=== PATIENT | male | born 1960 | race Caucasian/White ===

== ENCOUNTER 2017-05-14 21:44 | Observation (INO) ==
[2017-05-14 22:39] LABS: Basophils # 0.1 K/mcL (0.0-0.2); Basophils % 0.3 %; Eosinophils # 0.2 K/mcL (0.0-0.6); Eosinophils % 1.2 %; Hematocrit 45.2 % (37.5-50.1); Hemoglobin 14.9 g/dL (12.9-16.9); Immature Granulocytes % 0.4 % (0-4); Lymphocytes % 25.1 %; Mean Corpuscular Hemoglobin 29.3 pg (28.0-33.3); Mean Corpuscular Volume 88.8 fL (83.0-100.0); Mean Platelet Volume 8.8 fL (9.4-12.4); Neutrophils # 10.6 K/mcL (1.6-8.9); Platelet Count 306 K/mcL (140-400); Red Blood Count 5.09 M/mcL (4.19-5.50); Red Cell Distribution Width 13.1 % (11.5-14.5)
[2017-05-14 22:52] LABS: BUN/Creatinine Ratio 9 (6-26); Blood Urea Nitrogen 11 mg/dL (8-26); Calcium 9.8 mg/dL (8.6-10.8); Carbon Dioxide 29 mEq/L (19-29); Chloride 104 mEq/L (98-109); Glucose 134 mg/dL (70-99); Osmolality,Calculated 289 (280-300); Potassium 3.7 mEq/L (3.5-4.5); Sodium 139 mEq/L (136-145); eGFR For African Americans > 60 (> 60); eGFR For Non-African Americans > 60 (> 60)
--- NOTE | 2017-05-14 23:59 | Emergency Department Note ---
Disposition Clinical Impression: Chest pain Qualifiers: Chest pain type: unspecified Qualified Code(s): R07.9 - Chest pain, unspecified Disposition: Admitted As Inpatient Condition: Good Chest Pain HPI - General Chief Complaint: ED Chest Pain Stated Complaint: "CP/Chest Pressure" Time Seen by Provider: 05/14/17 22:58 Source: patient Limitations: no limitations Vital Signs Reviewed: Yes Nursing Notes Reviewed: Yes - History of Present Illness HPI Narrative: Patient presents for evaluation of chest pain that he describes as substernal pressure "something sitting on my chest". Patient states that he has had intermittent episodes of this in the past but they have all self resolved with rest and decreasing stress. Today the patient's episode has been constant and only relieved after being in the emergency department for approximately 20 minutes however this was prior to my initial evaluation of him. Patient is unsure whether exertion brings it on although when he is having the pain he does seem to have decreased exertional capacity. The patient started at bedside and states that these episodes are brought on with stress and he has been undergoing significant family stress. The patient denies cigarette smoking. Positive marijuana. She states that his sister is undergoing a heart surgery secondary to heart disease but has limited insight otherwise. Father had heart disease in his late 60s and early 70s. Patient will have basic chest pain workup and will likely need admission secondary to heart score of 5. Severity scale (1-10): 9 - Related Data Home Medications Medication Instructions Recorded Confirmed Geodon 160 mg PO HS 08/03/15 10/13/15 Trazodone HCl 200 mg PO HS 08/03/15 10/13/15 Previous Rx's Medication Instructions Recorded Ciprofloxacin [Cipro] 500 mg PO BID 72 Days 09/14/15 Allergies Allergy/AdvReac Type Severity Reaction Status Date / Time Bee Pollen Allergy Hives Verified 10/13/15 08:56 Review of Systems: CONSTITUTIONAL: No weight loss, fever, chills, weakness or fatigue. HEENT: Eyes: No visual changes. Ears, Nose, Throat: No hearing loss, difficulty talking or unable to swallow. SKIN: No rash or itching. CARDIOVASCULAR: Chest pain. RESPIRATORY: No shortness of breath, cough or sputum. GASTROINTESTINAL: No anorexia, nausea, vomiting or diarrhea. No abdominal pain or blood. GENITOURINARY: No burning on urination or hematuria. NEUROLOGICAL: No headache, dizziness, syncope, paralysis, ataxia, numbness or tingling in the extremities. No change in bowel or bladder control. MUSCULOSKELETAL: No muscle pain, back pain, joint pain or stiffness. Chest Pain PMH - Past Medical History Medical history: Reports: other Surgical history: Reports: no surgical history Psychiatric history: Reports: bipolar - Social History Smoking Status: Never smoker Alcohol use: Reports: none Drug use: Reports: marijuana Physical Exam General appearance: NAD, conversant Eyes: anicteric sclerae, moist conjunctivae; PERRL HENT: Atraumatic; oropharynx clear with moist mucous membranes and no mucosal ulcerations Neck: Normal inspection; Trachea midline; FROM, supple Lungs: CTA, with normal respiratory effort and no intercostal retractions CV: RRR, no MRGs Abdomen: Soft, non-tender; no rebound or gaurding Extremities: No peripheral edema or extremity lymphadenopathy Skin: Normal temperature; no rash, ulcers or lesions Psych: Appropriate mood and affect Neuro: alert and oriented to person, place and time - General Limitations: no limitations General appearance: alert, in no apparent distress Course - Consultations Consultation #1: Discussed with hospitalist, Dr. Aldana. Patient accepted for admission. Vital Signs Temperature 97.5 F L 05/14/17 21:47 Pulse Rate 100 05/14/17 21:47 Respiratory Rate 18 05/14/17 21:47 Blood Pressure 145/91 05/14/17 21:47 O2 Sat by Pulse Oximetry 94 05/14/17 21:47 Temperature 97.6 F 05/15/17 02:14 Pulse Rate 71 05/15/17 02:14 Respiratory Rate 16 05/15/17 02:14 Blood Pressure 156/91 05/15/17 02:14 O2 Sat by Pulse Oximetry 96 05/15/17 02:14 Oxygen Delivery Oxygen Delivery Room Air Chest Pain - Medical Records Medical records reviewed: Yes I reviewed the patient's medical records. - Lab Data Lab results reviewed: Yes I reviewed the patient's lab results. Result diagrams: 05/14/17 22:33 05/14/17 22:33 Lab Results 05/14/17 05/14/17 05/14/17 Range/Units 22:33 22:33 22:33 WBC 15.8 H (4.3-11.1) K/mcL RBC 5.09 (4.19-5.50) M/mcL Hgb 14.9 (12.9-16.9) g/dL Hct 45.2 (37.5-50.1) % MCV 88.8 (83.0-100.0) fL MCH 29.3 (28.0-33.3) pg MCHC 33.0 (31.6-35.5) g/dL RDW 13.1 (11.5-14.5) % Plt Count 306 (140-400) K/mcL MPV 8.8 L (9.4-12.4) fL Immature Gran % 0.4 (0-4) % Seg Neutrophils % 67.0 % Lymphocytes % 25.1 % Monocytes % 6.0 % Eosinophils % 1.2 % Basophils % 0.3 % Neutrophils # 10.6 H (1.6-8.9) K/mcL Lymphocytes # 4.0 (0.6-4.6) K/mcL Monocytes # 1.0 (0.0-1.3) K/mcL Eosinophils # 0.2 (0.0-0.6) K/mcL Basophils # 0.1 (0.0-0.2) K/mcL Sodium 139 (136-145) mEq/L Potassium 3.7 (3.5-4.5) mEq/L Chloride 104 (98-109) mEq/L Carbon Dioxide 29 (19-29) mEq/L BUN 11 (8-26) mg/dL Creatinine 1.20 (0.72-1.25) mg/dL Est GFR ( Amer) > 60 (> 60) Est GFR (Non-Af Amer) > 60 (> 60) BUN/Creatinine Ratio 9 (6-26) Glucose 134 H (70-99) mg/dL Calculated Osmolality 289 (280-300) Calcium 9.8 (8.6-10.8) mg/dL Troponin I 0.00 (0-0.03) ng/mL - Radiology Data Radiology results reviewed: Yes I reviewed the patient's radiology results. - EKG Data EKG attestation: Yes I reviewed and interpreted this EKG. EKG results narrative: Review patient has sinus rhythm with ventricular rate of 95. NE interval 156. QRS 89. QTC 399. The significant ST elevations or depressions. T-wave flattening in aVL when compared to previous EKG of 3/10/14. Heart Score - Score History: Moderately Suspicious EKG: Non Specific repolarisation Disturbance Age: 45-65 Risk Factors: Equal/Greater than 3 risk factor or history of atherosclerotic disease Troponin: Less than normal limit HEART Score Total: 5 Attestation Statement - Attestation Attestation: I, Cornelius Can MD, personally evaluated this patient and discussed their management with the resident physician. I reviewed the resident's note and agree with the documented findings, medical decision making, and plan of care. 56-year-old male presents to the emergency department with a complaint of severe pressure-like mid substernal chest pain which radiates to the left chest and towards the left shoulder. Patient states he has had similar pains intermittently in the past but they usually only last a few seconds and resolved but the episode tonight was much worse than usual and lasted for quite some time. He describes it as like an elephant sitting on his chest. It did not make him short of breath and nauseated. He also became diaphoretic. On examination patient is a well-developed well-nourished male in no acute distress. He is alert and oriented 3. There is no cyanosis or diaphoresis. Some mild tenderness over the left anterior chest wall. Breath sounds are clear and equal bilaterally. Heart regular rate and rhythm. Abdomen soft and nontender with normal bowel sounds. Labs reviewed. Chest x-ray negative. No acute changes on EKG. The hospitalist, Dr. Aldana, was consulted and accepted admission of the patient.
[2017-05-15] MEDS ORDERED: Ondansetron 4 MG/2 ML VIAL IVP PRN (04:45)
[2017-05-15] MEDS ORDERED: Naloxone 0.4 MG/ML INJ IVP PRN (04:45)
[2017-05-15] MEDS ORDERED: *HR* Morphine 2 MG/ML SYRINGE IVP PRN (04:45)
--- NOTE | 2017-05-15 04:55 | Internal Med History&Physical ---
Date of Encounter: 05/15/17 Time of Encounter: 04:50 Assessment and Plan (1) Chest pain Current visit: Yes Status: Acute 1. Will cycle troponins, EKG's, and order stress test along with ECHO. 2. Order urine drug screen given recent cocaine use about 3 weeks ago. He reports only one time use and none since. He admits to marijuana use daily, however. Qualifiers: Chest pain type: precordial pain Qualified Code(s): R07.2 - Precordial pain (2) Homelessness Current visit: Yes Status: Acute 1. Consult social work. (3) DVT prophylaxis Current visit: Yes Status: Acute 1. Heparin SQ. Internal Medicine - H&P: HPI Chief complaint: chest pain Admitted From: Emergency Dept Plans for Post Hospital Care: Home History of present illness: Mr. Phillips is a 56 year old male who presented to the ER tonight with complaints of chest pain, shortness of breath, and diaphoresis. Symptoms started earlier yesterday afternoon/evening, and his chest pain lasted more than an hour. Because of ongoing chest pain, he was prompted to come the ER by his daughter. Workup in the ER was negative, but because of his risk factors and presenting symptoms, he was admitted to the hospitalist service. Upon my assessment of the patient, he is chest pain-free currently. He does admit to having had chest pressure, shortness of breath, diaphoresis, and nausea. He felt as though someone was sitting on his chest. His symptoms have since resolved. He otherwise feels well. He denies any fevers, cough, congestion, body aches, chills, or night sweats. Cardiac risk factors include strong family history and former smoking status. He currently uses marijuana on a daily basis. He denies any other illicit drugs , but he did admit to a one-time use of cocaine roughly 3 weeks ago. I counseled patient at length on the need to abstain from all illicit drugs, especially cocaine given his cardiac complaints. He also is currently homeless and has been staying with friends. Past Med Surg Social Fam HX - Past Medical History Attestation: Yes The following information was validated with the patient. Source: patient, old records reviewed Medical history: no medical history Psychiatric history: bipolar - Past Surgical History Surgical History: orthopedic, other (C spine surgery), other (left ear surgery) - Social History Smoking Status: Never smoker Smokeless Tobacco Status: No Alcohol use: none Drug use: marijuana - Family History Mother Hx Family Cardiac Disorders: No Father Hx Family Cardiac Disorders: Yes Internal Medicine - H&P: Meds Geodon 160 mg PO HS 08/03/15 [History] Trazodone HCl 200 mg PO HS 08/03/15 [History] Ciprofloxacin [Cipro] 500 mg PO BID 72 Days 09/14/15 [Rx] Allergies Bee Pollen Allergy (Verified 10/13/15 08:56) Hives - Constitutional Constitutional: no chills, no fever(s), no night sweats - EENT Eyes: no blurry vision, no change in vision Ears: no ear pain, no tinnitus Nose, mouth and throat: no nasal congestion, no nasal discharge, no sinus pain, no sore throat - Cardiovascular Cardiovascular ROS IM: chest pain, diaphoresis, dyspnea, no edema, no lightheadedness, no syncope - Respiratory Respiratory: no cough, no hemoptysis, no wheezing, no chest congestion, no excessive phlegm production - Gastrointestinal Gastrointestinal: no abdominal pain, no diarrhea, no hematemesis, no hematochezia, no melena, no nausea, no vomiting - Genitourinary Genitourinary ROS male: no dysuria, no flank pain, no hematuria - Musculoskeletal Musculoskeletal ROS IM: no arthralgias, no back pain, no muscle cramps - Integumentary Integumentary IM: rash (from recent bed bug infestation), no jaundice - Neurological Neurological ROS: no dizziness, no focal weakness, no frequent falls, no headache(s) - Psychiatric Psychiatric: no anxiety, no depression, no paranoia - Endocrine Endocrine IM: no polydipsia, no polyuria - Hematologic/Lymphatic Hematologic/Lymphatic: no easy bruising, no lymphadenopathy - Allergic/Immunologic Allergic/Immunologic: no wheezing, no GI upset with certain foods - Constitutional Vitals: Temp Pulse Resp BP Pulse Ox 97.6 F 71 16 156/91 96 05/15/17 02:14 05/15/17 02:14 05/15/17 02:14 05/15/17 02:14 05/15/17 02:14 General appearance: Present: cooperative, disheveled, pleasant, no acute distress, answers questions appropriately - Head Head exam: Present: atraumatic, normal inspection - Eye Eye exam: Present: EOMI, normal appearance, PERRL. Absent: scleral icterus Pupils: Present: normal accommodation - ENT ENT exam: Present: mucous membranes moist, normal exam - Neck Neck exam general surgery: Present: full ROM, normal inspection, supple - Expanded Neck Exam Neck exam: Absent: carotid bruit - Respiratory Respiratory exam: Present: CTAB. Absent: chest wall tenderness, rales, rhonchi , wheezes - Cardiovascular Cardiovascular exam: Present: RRR, +S1, +S2. Absent: diastolic murmur, systolic murmur - GI/Abdominal GI/Abdominal exam: Present: normal bowel sounds, soft. Absent: hepatomegaly, mass, splenomegaly, tenderness - Extremities Exam Extremities exam: Present: warm, radial pulses palpable and symmetrical. Absent : calf tenderness, joint swelling, pedal edema - Back Exam Back exam: Present: normal inspection. Absent: CVA tenderness (L), CVA tenderness (R) - Neurological Exam Neurological exam: Present: alert, CN II-XII intact, oriented X3, no focal deficits - Psychiatric Psychiatric exam: Present: normal affect, normal mood - Skin Skin exam: Present: dry, rash (several small bug bite wounds (? bed bug bites)) , warm Internal Med - H&P Results - Labs CBC & Chem 7: 05/14/17 22:33 05/14/17 22:33 - EKG Data -: EKG Interpreted by Myself EKG shows normal: sinus rhythm - EKG Data Prior EKG available for review: no EKG comments: 05/15/17 05:23 NSR; no acute changes - Diagnostic Studies Chest x-ray Status: image reviewed by me (negative)
[2017-05-15 05:24] LABS: Amphetamine Screen,Urine Negative ng/mL (Cutoff=1000); Barbiturate Screen,Urine Negative ng/mL (Cutoff=200); Benzodiazepines Screen,Urine Negative ng/mL (Cutoff=200); Cannabinoid Screen,Urine Positive ng/mL (Cutoff = 50); Cocaine Screen,Urine Negative ng/mL (Cutoff= 300); Opiate Screen,Urine Negative ng/mL (Cutoff=300); Phencyclidine Screen,Urine Negative ng/mL (Cutoff=25)
[2017-05-15] MEDS ORDERED: Permethrin CRM 60 GM TUBE TP ONE (05:26)
[2017-05-15] MEDS ORDERED: *HR* Heparin 5,000 UNIT/ML VIAL SQ SCH (06:00)
[2017-05-15 07:25] LABS: Basophils % 0.3 %; Eosinophils # 0.2 K/mcL (0.0-0.6); Hematocrit 44.3 % (37.5-50.1); Hemoglobin 14.7 g/dL (12.9-16.9); Immature Granulocytes % 0.3 % (0-4); Lymphocytes % 25.2 %; Mean Corpuscular HGB Conc 33.2 g/dL (31.6-35.5); Mean Corpuscular Volume 87.4 fL (83.0-100.0); Mean Platelet Volume 9.2 fL (9.4-12.4); Monocytes # 0.9 K/mcL (0.0-1.3); Monocytes % 7.3 %; Neutrophils # 7.7 K/mcL (1.6-8.9); Platelet Count 314 K/mcL (140-400); Red Blood Count 5.07 M/mcL (4.19-5.50); Red Cell Distribution Width 13.2 % (11.5-14.5); Segmented Neutrophils % 64.9 %
[2017-05-15 07:29] LABS: INR 1.1; Prothrombin Time 11.4 Seconds (9.4-12.1)
[2017-05-15 07:31] LABS: Activated Partial Thrombo Time 32.3 Seconds (26.0-36.0)
[2017-05-15 07:35] LABS: Alanine Aminotransferase 20 Units/L (0-55); Albumin 3.7 g/dL (3.5-5.0); Albumin/Globulin Ratio 1.2 (1.1-2.2); Alkaline Phosphatase 82 Units/L (38-126); Aspartate Amino Transferase 16 Units/L (5-34); BUN/Creatinine Ratio 11 (6-26); Bilirubin,Total 0.5 mg/dL (0.2-1.2); Blood Urea Nitrogen 11 mg/dL (8-26); Calcium 9.5 mg/dL (8.6-10.8); Carbon Dioxide 27 mEq/L (19-29); Chloride 107 mEq/L (98-109); Globulin 3.1 g/dL (2.4-3.5); Glucose 107 mg/dL (70-99); Magnesium 1.9 mg/dL (1.6-2.6); Osmolality,Calculated 288 (280-300); Potassium 4.2 mEq/L (3.5-4.5); Sodium 139 mEq/L (136-145); Total Protein 6.8 g/dL (6.0-8.3); eGFR For African Americans > 60 (> 60); eGFR For Non-African Americans > 60 (> 60)
--- NOTE | 2017-05-15 08:48 | Event Note ---
<Bernard Javed - Last Filed: 05/15/17 08:42> Date of Encounter: 05/15/17 Time of Encounter: 08:15 Pt seen and examined at bedside. Patient reports Chest pain has resolved and he feels back to his baseline. He reports he has been experiencing cramps through out his body for a while now, previous physicians suggest dehydration and vitamin D deficiency as cause of these cramps. Patient's electrolytes including magnesium are all normal. Patient experienced what he described as a dennis horse in his chest while talking to him. Sxs resolved within a few seconds. On exam lungs CTAB, heart RRR, no m/g/r. MMM, PERRL. bowel sounds nl, abd SNT. Plan : Patient going for echo and stress test this morning. Troponin's have been negative and CXR showed no acute disease. Patient was counseled on cessation of smoking marijuana Follow Cardio's recs post stress/echo. <Ernesto Oliva - Last Filed: 05/15/17 17:14> Date of Encounter: 05/15/17 Stress test normal. Ok to discharge
[2017-05-15 12:29] VITALS: BP 158/107
--- NOTE | 2017-05-15 14:49 | Nuclear Medicine Stress Report ---
Exercise Nuclear Stress Name: Rusty Phillips Date of Study: 05/15/2017 Date: 1960 Ht: 70.0 in Medical Record#: [id number] Age: 56 Wt: 178.0 lb Gender: Male Order #: [id number] Location: [facility] Room: [facility] Supervising Provider: Ruiz Carpenter CNP Reading Physician: Angela Burns DO Ordering Physician: Sanford Cole MD Primary Care Physician: None Stress Technologist: Lilia Flores, REGIONAL ACCOUNT DIRECTOR, CCT, CPFT Electronic Health Records Specialist: Maxine Carballo Indications: Chest Pain Impression: Perfusion imaging was negative for ischemia or infarct. Exercise ECG was negative for ischemia. Hypertensive blood pressure response, peak blood pressure 230/92 mmHg. Gated EF = 70%. Stress Test Summary: Stress Test Type: Treadmill Protocol: Mustapha Baseline Information: Initial Heart Rate: 80 Blood Pressure: 156/86 Stress Information: Stress Time: 6 min 40 sec Test Terminated Due to (primary): Dyspnea Maximum Blood Pressure: 230/92 Maximum Heart Rate: 144 Percent Maximum Heart Rate Achieved: 88 Double Product: 00723 METS Reached: 7 Symptoms: Shortness of breath Nuclear Summary: SPECT myocardial perfusion imaging using Tc99m Sestamibi given intravenously was performed at rest and following cardiac stress testing. The resting images were obtained following initial dose of 11.7 mCi. Following stress an additional dose of 28.9 mCi was given at peak exercise or 30 seconds post regadenoson infusion. Medication Given: Time Medication Dose Units Route Findings: Stress Note * Resting ECG demonstrated normal sinus rhythm. * Exercise ECG is negative for ischemia. * No arrhythmias were noted during stress. Rare PVCs during recovery. * Patient had no chest pain during stress. * The exercise capacity was fair. Hemodynamic responses * The patient demonstrated a hypertensive blood pressure response. Study Quality * Study quality is good. Gated EF % * Gated EF = 70%. Left Ventricle * The left ventricle is not dilated. TID * No evidence of transient ischemic dilatation. Lung Uptake * There is no evidence of increase lung uptake. NORMALS * Normal wall motion. * Normal segmental perfusion in stress. * Normal Segmental Perfusion in rest. Updated by Angela Burns on 05/15/2017 2:42:36 PM electronically signed on 05/15/2017 2:43:27 PM with status of Final
--- NOTE | 2017-05-15 15:23 | Discharge Summary ---
<Nemesio Hawkins - Last Filed: 05/15/17 15:25> Date of Encounter: 05/15/17 Time of Encounter: 15:20 - Discharge Diagnosis (1) Chest pain Priority: Primary Status: Resolved Qualifiers: Chest pain type: precordial pain Qualified Code(s): R07.2 - Precordial pain - Discharge Medications Prescriptions: Lisinopril [Zestril] 10 mg PO DAILY #30 tablet Home Medications: Lisinopril [Zestril] 10 mg PO DAILY #30 tablet 05/15/17 [Rx] Trazodone HCl 300 - 400 mg PO HS 05/15/17 [History] Ziprasidone HCl [Geodon] 120 mg PO QPM 05/15/17 [History] Allergies/Adverse Reactions: Bee Pollen Allergy (Verified 10/13/15 08:56) Hives Procedures/tests Complete & Pending: Procedures Performed prior 72 hours Category Date Time Status NM suze perf SPECT multi [NM] Routine Exams 05/15/17 04:48 Taken ECG 12 lead ECG [ECG] AM 0600 Y 05/15/17 06:00 Ordered EV echocardiogram Routine Y 05/15/17 04:45 Ordered SP exercise nuclear stress Routine Y 05/15/17 07:20 Completed Date of admission: 05/15/17 00:53 Primary care physician: PCP NONE Consults: 05/15/17 02:52 Consult to Nutrition [CONS] Routine Comment: Pt states that he usually does not eat. Consulting Provider: NUTRITION Reason for Dietary Consult: Other Other:: Has no appitite 05/15/17 02:57 Consult to Chairperson Anesthesiology [CONS] Routine Reason for SW Consult: Homeless Discharging clinician: Nemesio Hawkins Anticipated date of discharge: 05/15/17 - Patient Status Disposition: Home, Self-Care Condition: Good Functional capacity at discharge: independent ambulation Overall status at discharge: patient is back to baseline - Discharge Instructions Instructions: Chest Pain (DC) Follow Up With: NONE,PCP [Primary Care Provider] - Additional Instructions: Please establish with a primary care physician. Please start lisinopril 10 mg daily. Please resume your home medications. Please return for any new or worsening symptoms. - Diet and Activity Activity: increase activity as tolerated Diet: advance to your usual diet Interval History: Patient seen and examined. He is chest pain-free at this time. He has no complaints. He is asking to go home. Hospital course: Mr. Phillips is a 56 year old male with no significant medical history presented with chest pain. Chest pain had resolved shortly before arrival to the emergency department. Patient been chest pain-free for his hospital stay. Stress test was obtained which was negative. Patient was found to be hypertensive during his hospital stay so we will start the patient on lisinopril 10 mg daily. Patient will be discharged home in stable condition. - Time Spent with Patient Total time spent providing and/or coordinating discharge services: Less than 30 minutes - Constitutional Vitals: Temp Pulse Resp BP Pulse Ox 98.2 F 71 18 158/107 94 05/15/17 12:28 05/15/17 12:28 05/15/17 12:28 05/15/17 12:28 05/15/17 12:28 General appearance: Present: cooperative, disheveled, pleasant, no acute distress, answers questions appropriately - Respiratory Respiratory exam: Present: CTAB. Absent: rales, rhonchi, wheezes - Cardiovascular Cardiovascular exam: Present: RRR. Absent: gallop, rubs, systolic murmur - GI/Abdominal GI/Abdominal exam: Present: normal bowel sounds, soft. Absent: distended, tenderness <Ernesto Oliva H - Last Filed: 05/15/17 17:15> Date of Encounter: 05/15/17 Procedures/tests Complete & Pending: Procedures Performed prior 72 hours Category Date Time Status NM suze perf SPECT multi [NM] Routine Exams 05/15/17 04:48 Taken ECG 12 lead ECG [ECG] AM 0600 Y 05/15/17 06:00 Ordered EV echocardiogram Routine Y 05/15/17 04:45 Completed SP exercise nuclear stress Routine Y 05/15/17 07:20 Completed Date of admission: 05/15/17 00:53 Primary care physician: PCP NONE Consults: 05/15/17 02:52 Consult to Nutrition [CONS] Routine Comment: Pt states that he usually does not eat. Consulting Provider: NUTRITION Reason for Dietary Consult: Other Other:: Has no appitite 05/15/17 02:57 Consult to Chairperson Anesthesiology [CONS] Routine Reason for SW Consult: Homeless Hospital course: Mr. Phillips is a 56 year old male - Time Spent with Patient Total time spent providing and/or coordinating discharge services: - Constitutional Vitals: Temp Pulse Resp BP Pulse Ox 98.2 F 71 18 158/107 94 05/15/17 12:28 05/15/17 12:28 05/15/17 12:28 05/15/17 12:28 05/15/17 12:28 - Attending Attestation Stress test normal. Ok to discharge Discharge on 10 mg of lisinopril due to untreated HTN I examined this patient and my medical decision-making was reviewed with the Resident Physician. I agree with the documented findings, disposition and treatment plan as described except to the extent set forth below.
--- NOTE | 2017-05-16 14:50 | Electrocardiograph Report ---
[address] [address] Test Date: 2017-05-14 Pat Name: Rusty Phillips Department: 102 Room: 2A Gender: M Certified Pharmacy Tech: [place] : 1960 Requested By: Cornelius Can Order Number: [id number] Reading MD: Mustapha Hurtado MD Measurements Intervals [place] Rate: 95 P: 56 MA: 156 QRS: 73 QRSD: 89 T: 46 QT: 346 QTc: 399 Interpretive Statements SINUS RHYTHM Electronically Signed On 05-16-2017 14:49:04 EDT by Mustapha Hurtado MD
== END 2017-05-15 15:45 | disposition home or self-care (01) ==
LOC: 2ANU 21:44 → EMEROO 21:44 → SUATTDRO 05-15 00:53 → 2ANU 05-15 01:57
PROVIDERS: ADMIT Pediatrics; ATTEND Internal Medicine

== ENCOUNTER 2017-06-19 09:33 | Observation (INO) ==
[2017-06-19] MEDS ORDERED: Famotidine 20 MG/2 ML VIAL IVP ONE (10:00)
[2017-06-19] MEDS ORDERED: Ondansetron 4 MG/2 ML VIAL IVP ONE (10:00)
[2017-06-19] MEDS ORDERED: 0.9 % Sodium Chloride 1,000 ML IVC ONE (10:00)
--- NOTE | 2017-06-19 10:08 | Emergency Department Note ---
Disposition Clinical Impression: Odynophagia, Nausea vomiting and diarrhea Disposition: Admitted As Inpatient Condition: Fair Referrals: Stefanie Jeronimo MD [Primary Care Provider] - Forms: ED Satisfaction Letter Time of Disposition: 10:57 Nausea/Vomiting/Diarrhea HPI - General Chief complaint: ED Nausea/Vomiting/Diarrhea Stated complaint: N/V/D Time Seen by Provider: 06/19/17 09:40 Source: patient Mode of arrival: ambulatory Limitations: no limitations Nursing Notes Reviewed: Yes Vital Signs Reviewed: Yes - History of Present Illness HPI Narrative: Patient complains of ongoing upper abdominal discomfort with swallowing. He states he is unable to tolerate large boluses of food or large swallows of liquids. He reports nausea, vomiting, diarrhea. No gross hematemesis. He is taking sucralfate and Zofran as prescribed from our emergency department. He is scheduled to have an upper endoscopy in 2 days. He does not feel dehydrated. Pt Subjective Complaint: nausea, vomiting, diarrhea, abdominal pain Onset (ago): week(s) Description of Diarrhea: green Associated Abdominal Pain: Yes If pain, Location of pain: epigastric Severity: severe Improves with: nothing Worsens with: eating Associated symptoms: Reports: denies other symptoms - Related Data Home Medications Medication Instructions Recorded Confirmed Trazodone HCl 300 - 400 mg PO HS 05/15/17 05/15/17 Ziprasidone HCl [Geodon] 120 mg PO QPM 05/15/17 05/15/17 Previous Rx's Medication Instructions Recorded Lisinopril [Zestril] 10 mg PO DAILY #30 tablet 05/15/17 Albuterol Sulfate [Albuterol 2 - 4 puff IH Q4HR PRN #1 06/07/17 Inhaler] hfa.aer.[email or web address] Azithromycin [Azithromycin 6-Tab 250 mg PO PER PKG DI #6 tab 06/07/17 Pack] predniSONE [Prednisone] 50 mg PO DAILY #4 tablet 06/07/17 Omeprazole [PriLOSEC] 40 mg PO DAILY #30 cap 06/08/17 Sucralfate [Carafate] 1 gm PO QIDAC #30 tablet 06/08/17 Omeprazole [PriLOSEC] 40 mg PO DAILY #30 cap 06/16/17 Ondansetron [Zofran] 8 mg PO Q8HR #12 tablet 06/16/17 Sucralfate [Carafate] 1 gm PO DA #30 tablet 06/16/17 Allergies Allergy/AdvReac Type Severity Reaction Status Date / Time Bee Pollen Allergy Hives Verified 06/16/17 12:15 All systems ED: reviewed and negative except as stated. Constitutional: Reports: as per HPI Eyes: Reports: as per HPI ENT ED: Reports: as per HPI Cardiovascular: Reports: as per HPI Respiratory: Reports: cough Gastrointestinal: Reports: abdominal pain, nausea, vomiting, diarrhea Genitourinary: Reports: as per HPI Musculoskeletal: Reports: as per HPI Integumentary: Reports: as per HPI Neurological: Reports: as per HPI Psychiatric: Reports: as per HPI Endocrine: Reports: as per HPI Hematological/Lymphatic: Reports: as per HPI Allergic/Immunologic: Reports: as per HPI Past Medical History - Past Medical History Source: patient Medical history: Reports: hypertension Surgical history: Reports: orthopedic, other (C spine surgery), other (left ear surgery) Psychiatric history: Reports: bipolar - Social History Smoking Status: Never smoker Smokeless Tobacco Status: No Alcohol use: Reports: none Drug use: Reports: marijuana Physical Exam - General Limitations: no limitations General appearance: alert, in no apparent distress - Head Head exam: atraumatic - Eye Eye exam: Present: normal appearance - ENT ENT exam: normal exam - Neck Neck exam: Present: normal inspection, full ROM - Chest Chest inspection: Present: normal inspection, symmetric chest wall rise - Respiratory Respiratory exam: Present: other (Productive cough) - Cardiovascular Cardiovascular exam: Present: regular rate, normal rhythm, normal heart sounds - Abdominal Exam Abdominal exam: Present: soft, tenderness (Mild tenderness in epigastrium), normal bowel sounds - Rectal Exam Rectal exam: Present: deferred - Extremities Exam Extremities exam: Present: normal inspection - Neurological Exam Neurological exam: Present: alert, oriented X3, CN II-XII intact - Psychiatric Psychiatric exam: Present: normal affect, normal mood - Skin Skin exam: Present: warm, dry, intact Course Course Narrative: Patient complains of ongoing epigastric pain with inability to tolerate swallowing food or liquids. He was recently seen in the emergency department for similar symptoms. I reviewed the transcribed report of his recent studies dated 06/16/[address] scan of his chest, abdomen. He also had a right upper quadrant ultrasound. The patient conveys concern that he is unable to continue tolerating his symptoms until he can have his upper endoscopy in 2 days. - Reevaluation(s) Reevaluation #1: Test results discussed with patient. He requests admission Vital Signs Temperature 98.1 F 06/19/17 09:37 Pulse Rate 75 06/19/17 09:37 Respiratory Rate 18 06/19/17 09:37 Blood Pressure 124/77 06/19/17 09:37 O2 Sat by Pulse Oximetry 96 06/19/17 09:37 Temperature 98.1 F 06/19/17 09:37 Pulse Rate 75 06/19/17 09:37 Respiratory Rate 18 06/19/17 09:37 Blood Pressure 124/77 06/19/17 09:37 O2 Sat by Pulse Oximetry 96 06/19/17 09:37 Oxygen Delivery Oxygen Delivery Room Air Nausea/Vomiting/Diarrhea - Lab Data Lab results reviewed: Yes I reviewed the patient's lab results. Result diagrams: 06/19/17 10:10 06/19/17 10:10 Lab Results 06/19/17 06/19/17 06/19/17 Range/Units 09:45 10:10 10:10 WBC 14.8 H (4.3-11.1) K/mcL RBC 4.54 (4.19-5.50) M/mcL Hgb 13.2 (12.9-16.9) g/dL Hct 39.9 (37.5-50.1) % MCV 87.9 (83.0-100.0) fL MCH 29.1 (28.0-33.3) pg MCHC 33.1 (31.6-35.5) g/dL RDW 13.3 (11.5-14.5) % Plt Count 312 (140-400) K/mcL MPV 9.4 (9.4-12.4) fL Immature Gran % 0.4 (0-4) % Seg Neutrophils % 70.1 % Lymphocytes % 21.1 % Monocytes % 6.4 % Eosinophils % 1.9 % Basophils % 0.1 % Neutrophils # 10.3 H (1.6-8.9) K/mcL Lymphocytes # 3.1 (0.6-4.6) K/mcL Monocytes # 0.9 (0.0-1.3) K/mcL Eosinophils # 0.3 (0.0-0.6) K/mcL Basophils # 0.0 (0.0-0.2) K/mcL Sodium 141 (136-145) mEq/L Potassium 3.8 (3.5-4.5) mEq/L Chloride 106 (98-109) mEq/L Carbon Dioxide 26 (19-29) mEq/L BUN 10 (8-26) mg/dL Creatinine 1.16 (0.72-1.25) mg/dL Est GFR ( Amer) > 60 (> 60) Est GFR (Non-Af Amer) > 60 (> 60) BUN/Creatinine Ratio 9 (6-26) Glucose 103 H (70-99) mg/dL Calculated Osmolality 291 (280-300) Calcium 9.0 (8.6-10.8) mg/dL Total Bilirubin 0.3 (0.2-1.2) mg/dL AST 12 (5-34) Units/L ALT 31 (0-55) Units/L Alkaline Phosphatase 78 (38-126) Units/L Troponin I (0-0.03) ng/mL Serum Total Protein 6.3 (6.0-8.3) g/dL Albumin 3.4 L (3.5-5.0) g/dL Globulin 2.9 (2.4-3.5) g/dL Albumin/Globulin Ratio 1.2 (1.1-2.2) Amylase 69 (25-125) Units/L Lipase 54 (8-78) Units/L Urine Color Dark Yellow (Yellow) Urine Clarity Clear (Clear) Urine pH 5.5 (5.0-8.0) pH Units Ur Specific [place] > 1.030 H (1.010-1.025) Urine Protein Trace (Neg-Trace) mg/dL Urine Glucose (UA) Normal (Normal) mg/dL Urine Ketones Trace H (Negative) mg/dL Urine Blood Negative (Negative) Urine Nitrite Negative (Negative) Urine Bilirubin Negative (Negative) Urine Urobilinogen Normal (Normal) mg/dL Ur Leukocyte Esterase Negative (Negative) Urine Microscopic RBC 0-3 (0-3) per hpf Urine Microscopic WBC 0-3 (0-3) per hpf Ur Squamous Epith Cells Moderate H (None-Few) per lpf Urine Bacteria None Seen (None-Few) per hpf Hyaline Casts None Seen (None-Few) per lpf 09/20/17 Range/Units 10:10 WBC (4.3-11.1) K/mcL RBC (4.19-5.50) M/mcL Hgb (12.9-16.9) g/dL Hct (37.5-50.1) % MCV (83.0-100.0) fL MCH (28.0-33.3) pg MCHC (31.6-35.5) g/dL RDW (11.5-14.5) % Plt Count (140-400) K/mcL MPV (9.4-12.4) fL Immature Gran % (0-4) % Seg Neutrophils % % Lymphocytes % % Monocytes % % Eosinophils % % Basophils % % Neutrophils # (1.6-8.9) K/mcL Lymphocytes # (0.6-4.6) K/mcL Monocytes # (0.0-1.3) K/mcL Eosinophils # (0.0-0.6) K/mcL Basophils # (0.0-0.2) K/mcL Sodium (136-145) mEq/L Potassium (3.5-4.5) mEq/L Chloride (98-109) mEq/L Carbon Dioxide (19-29) mEq/L BUN (8-26) mg/dL Creatinine (0.72-1.25) mg/dL Est GFR ( Amer) (> 60) Est GFR (Non-Af Amer) (> 60) BUN/Creatinine Ratio (6-26) Glucose (70-99) mg/dL Calculated Osmolality (280-300) Calcium (8.6-10.8) mg/dL Total Bilirubin (0.2-1.2) mg/dL AST (5-34) Units/L ALT (0-55) Units/L Alkaline Phosphatase (38-126) Units/L Troponin I 0.01 (0-0.03) ng/mL Serum Total Protein (6.0-8.3) g/dL Albumin (3.5-5.0) g/dL Globulin (2.4-3.5) g/dL Albumin/Globulin Ratio (1.1-2.2) Amylase (25-125) Units/L Lipase (8-78) Units/L Urine Color (Yellow) Urine Clarity (Clear) Urine pH (5.0-8.0) pH Units Ur Specific [place] (1.010-1.025) Urine Protein (Neg-Trace) mg/dL Urine Glucose (UA) (Normal) mg/dL Urine Ketones (Negative) mg/dL Urine Blood (Negative) Urine Nitrite (Negative) Urine Bilirubin (Negative) Urine Urobilinogen (Normal) mg/dL Ur Leukocyte Esterase (Negative) Urine Microscopic RBC (0-3) per hpf Urine Microscopic WBC (0-3) per hpf Ur Squamous Epith Cells (None-Few) per lpf Urine Bacteria (None-Few) per hpf Hyaline Casts (None-Few) per lpf - EKG Data EKG attestation: Yes I reviewed and interpreted this EKG. EKG results narrative: Sinus rhythm rate 68 WA 164 QRS 87 QT/QTC 388/405. Premature atrial complexes present.
[2017-06-19 10:20] LABS: Bilirubin,Urine Negative (Negative); Blood,Urine Negative (Negative); Clarity,Urine Clear (Clear); Color,Urine Dark Yellow (Yellow); Glucose,Urine (UA) Normal (Normal); Ketones,Urine Trace mg/dL (Negative); Leukocyte Esterase,Urine Negative (Negative); Nitrite,Urine Negative (Negative); PH,Urine 5.5 pH Units (5.0-8.0); Protein,Urine Trace mg/dL (Neg-Trace); Specific Gravity,Urine > 1.030 (1.010-1.025); Urobilinogen,Urine Normal (Normal)
[2017-06-19 10:24] LABS: Bacteria,Urine None Seen per hpf (None-Few); Hyaline Casts,Urine None Seen per lpf (None-Few); RBC,Urine 0-3 per hpf (0-3); Squamous Epithelial Cell,Urine Moderate per lpf (None-Few); WBC,Urine 0-3 per hpf (0-3)
[2017-06-19 10:29] LABS: Basophils % 0.1 %; Eosinophils # 0.3 K/mcL (0.0-0.6); Eosinophils % 1.9 %; Hematocrit 39.9 % (37.5-50.1); Hemoglobin 13.2 g/dL (12.9-16.9); Immature Granulocytes % 0.4 % (0-4); Lymphocytes # 3.1 K/mcL (0.6-4.6); Lymphocytes % 21.1 %; Mean Corpuscular HGB Conc 33.1 g/dL (31.6-35.5); Mean Corpuscular Hemoglobin 29.1 pg (28.0-33.3); Mean Corpuscular Volume 87.9 fL (83.0-100.0); Mean Platelet Volume 9.4 fL (9.4-12.4); Monocytes # 0.9 K/mcL (0.0-1.3); Monocytes % 6.4 %; Neutrophils # 10.3 K/mcL (1.6-8.9); Platelet Count 312 K/mcL (140-400); Red Blood Count 4.54 M/mcL (4.19-5.50); Red Cell Distribution Width 13.3 % (11.5-14.5); Segmented Neutrophils % 70.1 %
[2017-06-19 10:43] LABS: Alanine Aminotransferase 31 Units/L (0-55); Albumin 3.4 g/dL (3.5-5.0); Albumin/Globulin Ratio 1.2 (1.1-2.2); Alkaline Phosphatase 78 Units/L (38-126); Amylase 69 Units/L (25-125); Aspartate Amino Transferase 12 Units/L (5-34); BUN/Creatinine Ratio 9 (6-26); Bilirubin,Total 0.3 mg/dL (0.2-1.2); Blood Urea Nitrogen 10 mg/dL (8-26); Carbon Dioxide 26 mEq/L (19-29); Chloride 106 mEq/L (98-109); Globulin 2.9 g/dL (2.4-3.5); Glucose 103 mg/dL (70-99); Lipase 54 Units/L (8-78); Osmolality,Calculated 291 (280-300); Potassium 3.8 mEq/L (3.5-4.5); Sodium 141 mEq/L (136-145); Total Protein 6.3 g/dL (6.0-8.3); eGFR For African Americans > 60 (> 60); eGFR For Non-African Americans > 60 (> 60)
[2017-06-19] MEDS ORDERED: Acetaminophen 325 MG TABLET PO PRN (12:09)
[2017-06-19] MEDS ORDERED: Ondansetron 4 MG/2 ML VIAL IVP PRN (12:09)
[2017-06-19] MEDS ORDERED: Naloxone 0.4 MG/ML INJ IVP PRN (12:09)
[2017-06-19] MEDS ORDERED: tiZANidine 4 MG TABLET PO PRN (12:27)
--- NOTE | 2017-06-19 12:32 | Internal Med History&Physical ---
Date of Encounter: 06/19/17 Time of Encounter: 11:50 Assessment and Plan (1) Odynophagia Current visit: Yes Status: Acute Will place the pt into Med Surg for observation His Odynophagia / dysphagia with Epigastric discomfort seems more like to due to esophagitis and gastritis Since he does have difficulty to both liquid and solids he definitely would get benefit with EGD Talked to GI Dr. Hurtado , he will do EGD in AM NPO after mid night Clear liquid diet for now IV fluids IV and PO analgesics PPI BID + Carafate PO (2) Gastritis Current visit: Yes Status: Acute see above Qualifiers: Qualified Code(s): K29.70 - Gastritis, unspecified, without bleeding (3) HTN (hypertension) Current visit: Yes Status: Acute resumed home meds Qualifiers: Hypertension type: essential hypertension Qualified Code(s): I10 - Essential (primary) hypertension (4) DVT prophylaxis Current visit: No Status: Acute on [facility] - H&P: HPI Chief complaint: Difficulty to swallow Admitted From: Emergency Dept Plans for Post Hospital Care: Home History of present illness: Mr. Phillips is a 57 year old male with known PMH of Asthma, HTN, GERD who presented to ER today c/o worsening epigastric pain and difficulty to swallow for both sold and liquid food from last few days. He has been having this pain from last 2 months but from last one week they are progressively worsening and he is unable to hold anything down. he also c/o some nausea / dyspepsia and bilious secretions. He denied any CP / SOB. Past Med Surg Social Fam HX - Past Medical History Medical history: hypertension Psychiatric history: bipolar - Past Surgical History Surgical History: orthopedic, other (C spine surgery), other (left ear surgery) - Social History Smoking Status: Never smoker Smokeless Tobacco Status: No Alcohol use: none Drug use: marijuana - Family History Mother Hx Family Cardiac Disorders: No Father Hx Family Cardiac Disorders: Yes Internal Medicine - H&P: Meds Lisinopril [Zestril] 10 mg PO DAILY #30 tablet 05/15/17 [Rx] Trazodone HCl 300 - 400 mg PO HS 05/15/17 [History] Ziprasidone HCl [Geodon] 120 mg PO QPM 05/15/17 [History] Albuterol Sulfate [Albuterol Inhaler] 2 - 4 puff IH Q4HR PRN #1 hfa.aer.ad 06/07 [Rx] Omeprazole [PriLOSEC] 40 mg PO DAILY #30 cap 06/08/17 [Rx] Sucralfate [Carafate] 1 gm PO QIDAC #30 tablet 06/08/17 [Rx] Ondansetron [Zofran] 8 mg PO Q8HR #12 tablet 06/16/17 [Rx] Tizanidine HCl 4 mg PO Q12H PRN 06/19/17 [History] 3 Allergy/AdvReac Type Severity Reaction Status Date / Time Bee Pollen Allergy Hives Verified 06/16/17 12:15 All Systems PM: A 10-system review of systems was performed and is negative for pertinent findings except as documented above in the HPI. Review of systems: All the systems are reviewed everything is benign except the systems and symptoms I mentioned in the history of present illness - Constitutional Vitals: Temp Pulse Resp BP Pulse Ox 97.3 F L 67 16 145/85 97 06/19/17 12:19 06/19/17 12:19 06/19/17 12:19 06/19/17 12:19 06/19/17 12:19 General appearance: Present: A&O X 3, no acute distress, answers questions appropriately - Head Head exam: Present: atraumatic, normal inspection - Respiratory Respiratory exam: Present: CTAB. Absent: accessory muscle use, rales, rhonchi, wheezes - Cardiovascular Cardiovascular exam: Present: RRR, +S1, +S2. Absent: diastolic murmur, gallop, rubs, systolic murmur - GI/Abdominal GI/Abdominal exam: Present: normal bowel sounds, soft, tenderness (mild discomfort in epigastric region), no peritoneal signs. Absent: distended, guarding, rebound, rigid - Extremities Exam Extremities exam: Absent: calf tenderness, pedal edema, tenderness - Back Exam Back exam: Absent: CVA tenderness (L), CVA tenderness (R) - Neurological Exam Neurological exam: Present: alert, oriented X3 - Psychiatric Psychiatric exam: Present: normal affect, normal mood Internal Med - H&P Results - Labs CBC & Chem 7: 06/19/17 10:10 06/19/17 10:10
[2017-06-19] MEDS: *HR* HYDROcodone/Acet 5/325 mg TABLET PO PRN ×2 (14:00→19:53)
[2017-06-19] MEDS: 0.9 % Sodium Chloride 1,000 ML IVC SCH ×2 (14:00→21:57)
[2017-06-19] MEDS: Pantoprazole 40 MG VIAL IVP SCH (17:35)
[2017-06-19] MEDS: Sucralfate 1 GM TABLET PO SCH ×2 (17:35→21:57)
[2017-06-19] MEDS: Ziprasidone 20 MG CAPSULE PO SCH (17:35)
[2017-06-19] MEDS: *HR* Morphine 2 MG/ML SYRINGE IVP PRN ×2 (17:35→21:58)
[2017-06-19] MEDS: Mag Hydrox/Al Hydrox/Simeth 30 ML UDC PO PRN (19:58)
[2017-06-19] MEDS: traZODone 50 MG TABLET PO SCH (21:57)
[2017-06-20] MEDS: *HR* Morphine 2 MG/ML SYRINGE IVP PRN ×4 (03:15→16:22)
[2017-06-20 05:24] LABS: Basophils % 0.3 %; Eosinophils # 0.4 K/mcL (0.0-0.6); Eosinophils % 3.3 %; Hematocrit 36.8 % (37.5-50.1); Hemoglobin 11.9 g/dL (12.9-16.9); Immature Granulocytes % 0.3 % (0-4); Lymphocytes # 3.3 K/mcL (0.6-4.6); Lymphocytes % 28.5 %; Mean Corpuscular HGB Conc 32.3 g/dL (31.6-35.5); Mean Corpuscular Hemoglobin 28.9 pg (28.0-33.3); Mean Corpuscular Volume 89.3 fL (83.0-100.0); Mean Platelet Volume 9.4 fL (9.4-12.4); Monocytes # 0.9 K/mcL (0.0-1.3); Monocytes % 7.5 %; Platelet Count 250 K/mcL (140-400); Red Blood Count 4.12 M/mcL (4.19-5.50); Red Cell Distribution Width 13.4 % (11.5-14.5); Segmented Neutrophils % 60.1 %
[2017-06-20] MEDS: Pantoprazole 40 MG VIAL IVP SCH ×2 (05:48→18:22)
[2017-06-20 05:53] LABS: BUN/Creatinine Ratio 8 (6-26); Blood Urea Nitrogen 8 mg/dL (8-26); Calcium 8.5 mg/dL (8.6-10.8); Carbon Dioxide 24 mEq/L (19-29); Chloride 110 mEq/L (98-109); Glucose 98 mg/dL (70-99); Osmolality,Calculated 286 (280-300); Sodium 139 mEq/L (136-145); eGFR For African Americans > 60 (> 60); eGFR For Non-African Americans > 60 (> 60)
[2017-06-20] MEDS: 0.9 % Sodium Chloride 1,000 ML IVC SCH ×2 (05:53→16:24)
[2017-06-20] MEDS: Sucralfate 1 GM TABLET PO SCH ×4 (07:52→21:33)
--- NOTE | 2017-06-20 08:09 | Electrocardiograph Report ---
[place] [id number] Test Date: 2017-06-19 Pat Name: Rusty Phillips Department: 103 Room: 3B Gender: M [employer] Agent: JANNETH : 1960 Requested By: Mauro Schuster Order Number: [id number] Reading MD: Mustapha Hurtado MD Measurements Intervals [place] Rate: 68 P: 32 MO: 164 QRS: 66 QRSD: 87 T: 52 QT: 388 QTc: 405 Interpretive Statements SINUS RHYTHM WITH OCCASIONAL ECTOPIC PREMATURE COMPLEXES Electronically Signed On 06-20-2017 6:41:45 EDT by Mustapha Hurtado MD
--- NOTE | 2017-06-20 11:29 | Internal Med Progress Note ---
Date of Encounter: 06/20/17 Time of Encounter: 11:17 - Assessment and plan (1) Odynophagia Current Visit: Yes Status: Acute Assessment and plan: for 2-3 months prior to admission. Reports inability to swallow water without pain/difficulty. CTA showed esophageal wall thickening suggestive of esophagitis. GI consulted and planning EGD to rule out a mass or any other abnormalities NPO, IV fluids, IV PPI, Carafate. GI following (2) HTN (hypertension) Current Visit: Yes Status: Acute Assessment and plan: per hx. BP variable but acceptable. Continue home BP medications. Monitor BP and titrate PRN Qualifiers: Hypertension type: essential hypertension Qualified Code(s): I10 - Essential (primary) hypertension (3) DVT prophylaxis Current Visit: No Status: Acute Assessment and plan: SCDs - Time Spent With Patient less than 15 minutes - Subjective Interval history: Seen and examined at bedside. Patient is new to me, information obtained from chart review and patient report. Patient reports intermittent difficulty/ painful swallowing. Says he is unable to take a drink of water without and to spit it back out. No trouble breathing, no airway compromise. Denies chest pain. No abdominal pain, no nausea vomiting or diarrhea. - Constitutional Vitals: Temp Pulse Resp BP Pulse Ox 98.0 F 68 16 139/76 94 06/20/17 10:45 06/20/17 10:45 06/20/17 10:45 06/20/17 10:45 06/20/17 10:45 General appearance: Present: A&O X 3, no acute distress, answers questions appropriately - Head Head exam: Present: atraumatic, normocephalic - Eye Eye exam: Present: PERRL, conjuntiva pink, sclera anicteric Pupils: Present: PERRL - Neck Neck exam general surgery: Present: supple, trachea midline. Absent: lymphadenopathy - Respiratory Respiratory exam: Present: CTAB. Absent: accessory muscle use, rales, rhonchi, wheezes - Cardiovascular Cardiovascular exam: Present: RRR, +S1, +S2. Absent: diastolic murmur, gallop, rubs, systolic murmur - GI/Abdominal GI/Abdominal exam: Present: normal bowel sounds, soft, no peritoneal signs. Absent: distended, tenderness - Extremities Exam Extremities exam: Present: warm, radial pulses palpable and symmetrical. Absent : calf tenderness, cyanotic, pedal edema - Neurological Exam Neurological exam: Present: CN II-XII intact, oriented X3, no focal deficits. Absent: pronater drift, facial droop, speech deficit - Skin Skin exam: Present: dry, intact Internal Medicine: Result - Labs CBC & Chem 7: 06/20/17 04:59 06/20/17 04:59 Labs: Short CBC 06/20/17 Range/Units 04:59 WBC 11.7 H (4.3-11.1) K/mcL Hgb 11.9 L (12.9-16.9) g/dL Hct 36.8 L (37.5-50.1) % Plt Count 250 (140-400) K/mcL Neutrophils # 7.0 (1.6-8.9) K/mcL BMP 06/20/17 04:59 Sodium 139 Potassium 4.0 Chloride 110 H Carbon Dioxide 24 BUN 8 Creatinine 0.97 Glucose 98 Calcium 8.5 L - VTE Documentation of Mechanical Device: Intermittent pneumatic compression device Consult Discharge Plan - Plan Referrals: Stefanie Jeronimo MD [Primary Care Provider] -
[2017-06-20] MEDS: *HR* HYDROcodone/Acet 5/325 mg TABLET PO PRN (14:32)
--- NOTE | 2017-06-20 14:35 | Gastroenterology Consult Note ---
<Sudha Lima - Last Filed: 06/20/17 14:52> Date of Encounter: 06/20/17 Time of Encounter: 14:33 - Assessment and plan (1) Odynophagia Current Visit: Yes Status: Acute Assessment and plan: Odynophagia for past 2-3 months, and has intermittently been going on for a few years. CTA showed esophageal wall thickening. likely esophagitis, but need to do EGD to rule out mass or any other abnormalities. Plan NPO EGD later today - Time Spent With Patient Total time spent is greater than 50% in coordination of care (as documented) at patient's floor/unit and/or counseling patient: GI History of Present Illness - Data of Consult Consult date: 06/20/17 Requesting Physician: Mariposa Tripp CNP - Consult Narrative History of present illness: Mr. Phillips is a 57 year old male with PMHx of asthma, HTN, GERD. patient arrived to [facility] with chief complaint of epigastric pain and difficulty swallowing both swolids and liquids, and unable to keep anything down. he admits to nasuea, dyspepsia. He reports Odynophagia that has been going on intermittently for years, and then just recently started again a few months ago. He was vomiting a couple times a day for a few days before arrival to ED. he denies history of ulcers. he admits to nausea without vomiting today. admits to fevers of 103 prior to arrival to hospital. admits to chills, shortness of breath. he admits to dark tarry stools. he cannot recall if he has hematochezia, but admits to melena. Past Med Surg Social Fam HX - Past Medical History Medical history: hypertension, other Psychiatric history: bipolar - Past Surgical History Surgical History: orthopedic, other - Social History Smoking Status: Never smoker Smokeless Tobacco Status: No Alcohol use: none Drug use: marijuana - Family History Mother Hx Family Cardiac Disorders: No Father Hx Family Cardiac Disorders: Yes All systems PM: reviewed and no additional remarkable complaints except as stated - Constitutional Vitals: Temp Pulse Resp BP Pulse Ox 98.0 F 68 16 139/76 94 06/20/17 10:45 06/20/17 10:45 06/20/17 10:45 06/20/17 10:45 06/20/17 10:45 General appearance: Present: A&O X 3, pleasant, no acute distress - Head Head exam: Present: atraumatic, normocephalic - Neck Neck exam general surgery: Present: supple, trachea midline - Respiratory Respiratory exam: Present: CTAB - Cardiovascular Cardiovascular exam: Present: RRR, +S1, +S2 - GI/Abdominal GI/Abdominal exam: Present: guarding, normal bowel sounds, tenderness. Absent: distended Additional comments: right upper quadrant tenderness with guarding present. - Extremities Exam Extremities exam: Absent: cyanotic, pedal edema - Neurological Exam Neurological exam: Present: alert, oriented X3, no focal deficits - Skin Skin exam: Present: intact. Absent: cyanosis Results - Labs CBC & Chem 7: 06/20/17 04:59 06/20/17 04:59 Labs: Last Result Calcium 8.5 mg/dL (8.6-10.8) L 06/20/17 04:59 Troponin I 0.01 ng/mL (0-0.03) 06/19/17 10:10 Entire Visit Hgb 11.9 g/dL (12.9-16.9) L 06/20/17 04:59 Hct 36.8 % (37.5-50.1) L 06/20/17 04:59 Total Bilirubin 0.3 mg/dL (0.2-1.2) 06/19/17 10:10 AST 12 Units/L (5-34) 06/19/17 10:10 ALT 31 Units/L (0-55) 06/19/17 10:10 Amylase 69 Units/L (25-125) 06/19/17 10:10 Lipase 54 Units/L (8-78) 06/19/17 10:10 Consult Discharge Plan - Plan Referrals: Stefanie Jeronimo MD [Primary Care Provider] - <Gina Hurtado - Last Filed: 06/20/17 17:57> Date of Encounter: 06/20/17 Time of Encounter: 18:00 - Time Spent With Patient Total time spent is greater than 50% in coordination of care (as documented) at patient's floor/unit and/or counseling patient: GI History of Present Illness - Data of Consult Requesting Physician: Mariposa Tripp CNP - Consult Narrative History of present illness: Mr. Phillips is a 57 year old male - Constitutional Vitals: Temp Pulse Resp BP Pulse Ox 98.2 F 59 16 152/96 95 06/20/17 14:00 06/20/17 17:53 06/20/17 17:53 06/20/17 17:53 06/20/17 17:53 Results - Labs CBC & Chem 7: 06/20/17 04:59 06/20/17 04:59 Labs: Last Result Calcium 8.5 mg/dL (8.6-10.8) L 06/20/17 04:59 Troponin I 0.01 ng/mL (0-0.03) 06/19/17 10:10 Entire Visit Hgb 11.9 g/dL (12.9-16.9) L 06/20/17 04:59 Hct 36.8 % (37.5-50.1) L 06/20/17 04:59 Total Bilirubin 0.3 mg/dL (0.2-1.2) 06/19/17 10:10 AST 12 Units/L (5-34) 06/19/17 10:10 ALT 31 Units/L (0-55) 06/19/17 10:10 Amylase 69 Units/L (25-125) 06/19/17 10:10 Lipase 54 Units/L (8-78) 06/19/17 10:10 - Attending Attestation I examined this patient and my medical decision-making was reviewed with the Resident Physician. I agree with the documented findings, disposition and treatment plan as described except to the extent set forth below.
[2017-06-20] MEDS ORDERED: *HR* Midazolam HCl 5 MG/5 ML VIAL IVP ONE (17:33)
[2017-06-20] MEDS ORDERED: *HR* FentaNYL (PF) 100 MCG/2 ML VIAL ONE (17:34)
[2017-06-20] MEDS ORDERED: Simethicone 40 MG/0.6 ML MLS IR ONE (17:58)
[2017-06-20] MEDS ORDERED: Tetracaine/Benzocaine/Butamben 200MG/SPRAY (100SPY/BOT) MM ONE (17:58)
--- NOTE | 2017-06-20 17:59 | Pre-Sedation Evaluation ---
Pre-sedation evaluation - Pre-sedation checklist Date of procedure: 06/20/17 Procedure: EGD Recent Vitals: Last Vital Signs Temp 98.2 F 06/20/17 14:00 Pulse 59 06/20/17 17:53 Resp 16 06/20/17 17:53 BP 152/96 06/20/17 17:53 Pulse Ox 95 06/20/17 17:53 Previous reaction to sedatives/anesthetics: No Dietary Status: NPO after Midnight Dentition: full dentition ASA Classification *see protocol: CLASS II-Mild systemic disease Plan of Care: Pt appropriate candidate for procedure/moderate/conscious sedation , Risks/benefits of procedure/sedation discussed w/ patient/family
[2017-06-20] MEDS: *HR* FentaNYL (PF) 100 MCG/2 ML VIAL IVP PRN ×2 (18:00→18:04)
[2017-06-20] MEDS: *HR* Midazolam HCl 5 MG/5 ML VIAL IVP PRN ×2 (18:00→18:03)
[2017-06-20] MEDS: Ziprasidone 20 MG CAPSULE PO SCH (21:33)
[2017-06-20] MEDS: traZODone 50 MG TABLET PO SCH (21:34)
[2017-06-21] MEDS: *HR* Morphine 2 MG/ML SYRINGE IVP PRN (02:01)
[2017-06-21] MEDS: Mag Hydrox/Al Hydrox/Simeth 30 ML UDC PO PRN (02:01)
[2017-06-21] MEDS: 0.9 % Sodium Chloride 1,000 ML IVC SCH ×3 (02:12→12:41)
[2017-06-21 03:49] LABS: Hematocrit 35.9 % (37.5-50.1); Hemoglobin 11.7 g/dL (12.9-16.9); Mean Corpuscular HGB Conc 32.6 g/dL (31.6-35.5); Mean Corpuscular Hemoglobin 28.7 pg (28.0-33.3); Mean Corpuscular Volume 88.2 fL (83.0-100.0); Mean Platelet Volume 9.8 fL (9.4-12.4); Platelet Count 263 K/mcL (140-400); Red Blood Count 4.07 M/mcL (4.19-5.50)
[2017-06-21 04:10] LABS: Alanine Aminotransferase 20 Units/L (0-55); Albumin 2.8 g/dL (3.5-5.0); Albumin/Globulin Ratio 1.2 (1.1-2.2); Alkaline Phosphatase 63 Units/L (38-126); Aspartate Amino Transferase 9 Units/L (5-34); BUN/Creatinine Ratio 10 (6-26); Bilirubin,Total 0.4 mg/dL (0.2-1.2); Blood Urea Nitrogen 8 mg/dL (8-26); Calcium 8.4 mg/dL (8.6-10.8); Carbon Dioxide 22 mEq/L (19-29); Chloride 110 mEq/L (98-109); Globulin 2.4 g/dL (2.4-3.5); Glucose 89 mg/dL (70-99); Osmolality,Calculated 286 (280-300); Potassium 3.9 mEq/L (3.5-4.5); Sodium 139 mEq/L (136-145); Total Protein 5.2 g/dL (6.0-8.3); eGFR For African Americans > 60 (> 60); eGFR For Non-African Americans > 60 (> 60)
[2017-06-21] MEDS: Pantoprazole 40 MG VIAL IVP SCH (05:41)
[2017-06-21] MEDS: Sucralfate 1 GM TABLET PO SCH ×2 (08:07→12:40)
--- NOTE | 2017-06-21 11:13 | Internal Med Progress Note ---
Date of Encounter: 06/21/17 Time of Encounter: 11:07 - Assessment and plan (1) Odynophagia Current Visit: Yes Status: Acute Assessment and plan: for 2-3 months prior to admission. Reports inability to swallow water without pain/difficulty. CTA showed esophageal wall thickening suggestive of esophagitis. 06/21/2017 EGD with normal esohpagus and stomach; s/p esophagus dilation. Still with complaint of odynophagia and feels "Like food is stuck". Evaluated by speech therapy and no evidence of aspiration. Full liquid diet per GI. Cont IV PPI, Carafate. GI following. CXR pending (2) HTN (hypertension) Current Visit: Yes Status: Acute Assessment and plan: per hx. BP variable but acceptable. Continue home BP medications. Monitor BP and titrate PRN Qualifiers: Hypertension type: essential hypertension Qualified Code(s): I10 - Essential (primary) hypertension (3) DVT prophylaxis Current Visit: No Status: Acute Assessment and plan: SCDs - Time Spent With Patient less than 15 minutes - Subjective Interval history: Seen and examined at bedside. Patient is new to me, information obtained from chart review and patient report. Patient reports intermittent difficulty/ painful swallowing. Says he is unable to take a drink of water without and to spit it back out. No trouble breathing, no airway compromise. Denies chest pain. No abdominal pain, no nausea vomiting or diarrhea. - Constitutional Vitals: Temp Pulse Resp BP Pulse Ox 98.2 F 70 15 135/84 96 06/21/17 07:35 06/21/17 07:35 06/21/17 07:35 06/21/17 07:35 06/21/17 08:00 General appearance: Present: A&O X 3, no acute distress, answers questions appropriately Internal Medicine: Result - Labs CBC & Chem 7: 06/21/17 03:16 06/21/17 03:16 Labs: Short CBC 06/21/17 Range/Units 03:16 WBC 11.4 H (4.3-11.1) K/mcL Hgb 11.7 L (12.9-16.9) g/dL Hct 35.9 L (37.5-50.1) % Plt Count 263 (140-400) K/mcL BMP 06/21/17 03:16 Sodium 139 Potassium 3.9 Chloride 110 H Carbon Dioxide 22 BUN 8 Creatinine 0.80 Glucose 89 Calcium 8.4 L Liver Function 06/21/17 Range/Units 03:16 Total Bilirubin 0.4 (0.2-1.2) mg/dL AST 9 (5-34) Units/L ALT 20 (0-55) Units/L Alkaline Phosphatase 63 (38-126) Units/L Albumin 2.8 L (3.5-5.0) g/dL - VTE Documentation of Mechanical Device: Intermittent pneumatic compression device Consult Discharge Plan - Plan Referrals: Stefanie Jeronimo MD [Primary Care Provider] -
--- NOTE | 2017-06-21 15:52 | Discharge Summary ---
Date of Encounter: 06/21/17 Time of Encounter: 15:50 - Discharge Diagnosis (1) Odynophagia Priority: Primary Status: Acute Comments: for 2-3 months prior to admission. Reports inability to swallow water without pain/difficulty. CTA showed esophageal wall thickening suggestive of esophagitis. 06/21/2017 EGD with normal esohpagus and stomach; s/p esophagus dilation. Evaluated by speech therapy and no evidence of aspiration. Tolerating regular diet at time of discharge. Cont PPI, Carafate. Will need to follow-up with Dr. Hurtado (2) HTN (hypertension) Priority: Primary Status: Acute Comments: per hx. BP variable but acceptable. Continue home BP medications. Qualifiers: Hypertension type: essential hypertension Qualified Code(s): I10 - Essential (primary) hypertension - Discharge Medications Home Medications: Lisinopril [Zestril] 10 mg PO DAILY #30 tablet 05/15/17 [Rx] Trazodone HCl 300 - 400 mg PO HS 05/15/17 [History] Ziprasidone HCl [Geodon] 120 mg PO QPM 05/15/17 [History] Albuterol Sulfate [Albuterol Inhaler] 2 - 4 puff IH Q4HR PRN #1 hfa.aer.ad 06/07 [Rx] Omeprazole [PriLOSEC] 40 mg PO DAILY #30 cap 06/08/17 [Rx] Sucralfate [Carafate] 1 gm PO QIDAC #30 tablet 06/08/17 [Rx] Ondansetron [Zofran] 8 mg PO Q8HR #12 tablet 06/16/17 [Rx] Tizanidine HCl 4 mg PO Q12H PRN 06/19/17 [History] Allergies/Adverse Reactions: 3 Allergy/AdvReac Type Severity Reaction Status Date / Time Bee Pollen Allergy Hives Verified 06/16/17 12:15 Date of admission: 06/19/17 11:26 Primary care physician: Stefanie Jeronimo Consults: 06/19/17 12:26 Consult to Gastroenterology [CONS] Routine Consulting Provider: Gastroenterology Dolores Reason for Consult: Acute dysphagia Call Completed: Yes 06/21/17 08:45 Consult to Speech Therapy [CONS] Routine Comment: Evaluate, develop and implement POC Reason for Consult: painful swallowingl, feels like food is stuck. EGD normal , s/p dilation Call Completed: Yes Discharging clinician: Mariposa Tripp Anticipated date of discharge: 06/21/17 - Patient Status Disposition: Home, Self-Care Condition: Good Functional capacity at discharge: independent ambulation Overall status at discharge: patient is back to baseline - Discharge Instructions Follow Up With: Stefanie Jeronimo MD [Primary Care Provider] - Gina Hurtado MD [Partnered Physician] - - Diet and Activity Activity: increase activity as tolerated Diet: advance to your usual diet Hospital course: See assessment and plan for hospital course - Time Spent with Patient Total time spent providing and/or coordinating discharge services: Less than 30 minutes (22 minutes) - Constitutional Vitals: Temp Pulse Resp BP Pulse Ox 98.8 F 62 16 135/81 96 06/21/17 11:40 06/21/17 11:40 06/21/17 11:40 06/21/17 11:40 06/21/17 11:40 General appearance: Present: A&O X 3, no acute distress, answers questions appropriately - Head Head exam: Present: atraumatic, normocephalic - Eye Eye exam: Present: PERRL, conjuntiva pink, sclera anicteric Pupils: Present: PERRL - Neck Neck exam general surgery: Present: supple, trachea midline. Absent: lymphadenopathy - Respiratory Respiratory exam: Present: CTAB. Absent: accessory muscle use, rales, rhonchi, wheezes - Cardiovascular Cardiovascular exam: Present: RRR, +S1, +S2. Absent: diastolic murmur, gallop, rubs, systolic murmur - GI/Abdominal GI/Abdominal exam: Present: normal bowel sounds, soft, no peritoneal signs. Absent: distended, tenderness - Extremities Exam Extremities exam: Present: warm, radial pulses palpable and symmetrical. Absent : calf tenderness, cyanotic, pedal edema - Neurological Exam Neurological exam: Present: CN II-XII intact, oriented X3, no focal deficits. Absent: pronater drift, facial droop, speech deficit - Skin Skin exam: Present: dry, intact - VTE Documentation of Mechanical Device: Intermittent pneumatic compression device
[2017-06-21 15:56] VITALS: BP 156/83
== END 2017-06-21 16:47 | disposition home or self-care (01) ==
LOC: EMEROO 09:33 → 3BNU 09:33
PROVIDERS: ADMIT Family Medicine; ATTEND Registered Nurse
PROC: ENDOEDS (2017-06-20 16:00)

== ENCOUNTER 2018-10-30 23:51 | Observation (INO) ==
[2018-10-31] MEDS ORDERED: Aspirin 81 MG TAB.CHEW PO ONE (00:05)
[2018-10-31 00:36] LABS: Basophils # 0.1 K/mcL (0.0-0.2); Basophils % 0.4 %; Eosinophils # 0.2 K/mcL (0.0-0.6); Eosinophils % 1.4 %; Hematocrit 42.9 % (37.5-50.1); Hemoglobin 14.6 g/dL (12.9-16.9); Immature Granulocytes % 0.3 % (0-4); Lymphocytes # 3.9 K/mcL (0.6-4.6); Lymphocytes % 27.4 %; Mean Corpuscular Hemoglobin 29.6 pg (28.0-33.3); Mean Platelet Volume 9.3 fL (9.4-12.4); Monocytes # 1.1 K/mcL (0.0-1.3); Monocytes % 7.5 %; Neutrophils # 8.9 K/mcL (1.6-8.9); Platelet Count 318 K/mcL (140-400); Red Blood Count 4.93 M/mcL (4.19-5.50); Red Cell Distribution Width 12.9 % (11.5-14.5)
[2018-10-31] MEDS: Nitroglycerin 0.4 MG TAB.SUBL SL ONE ×3 (00:40→00:51)
[2018-10-31 00:47] LABS: BUN/Creatinine Ratio 10 (6-26); Blood Urea Nitrogen 11 mg/dL (6-20); Calcium 9.7 mg/dL (8.6-10.3); Carbon Dioxide 21 mEq/L (23-29); Chloride 107 mEq/L (98-107); Glucose 121 mg/dL (70-105); Osmolality,Calculated 285 (280-300); Potassium 3.7 mEq/L (3.5-5.1); Sodium 137 mEq/L (136-145); Troponin I < 0.03 ng/mL (< 0.04); eGFR For Non-African Americans > 60 (> 60)
--- NOTE | 2018-10-31 01:16 | Emergency Department Note ---
Disposition Clinical Impression: Chest pain Qualifiers: Chest pain type: unspecified Qualified Code(s): R07.9 - Chest pain, unspecified Disposition: Admitted As Inpatient Condition: Fair Referrals: Pee Bates Jr, EMPLOYMENT ADVISOR [Primary Care Provider] - Forms: ED Satisfaction Letter Time of Disposition: 01:20 General Adult HPI - General Chief complaint: ED Chest Pain Stated complaint: CP Time Seen by Provider: 10/31/18 00:01 Source: patient Mode of arrival: ambulatory Limitations: no limitations Vital Signs Reviewed: Yes - History of Present Illness HPI Narrative: Patient is a 58-year-old male with past medical history of diabetes, cholesterol and hypertension presents to the emergency department for evaluation of chest pain that started at noon today. Chest pain was sudden in onset while he was sitting down drinking coffee describes it as a left-sided aching pain that was a 10/10 associated with dyspnea, nausea and radiation into the right arm. He did not notice any exacerbating or alleviating factors. States it continued throughout the day however it has lightened up and is currently a 5/10. Denies history of heart attack in the past. States he was working out in the cold throughout the day. Pain Scale: 0 - Related Data Home Medications Medication Instructions Recorded Confirmed Trazodone HCl 300 - 400 mg PO HS 05/15/17 06/19/17 Ziprasidone HCl [Geodon] 120 mg PO QPM 05/15/17 06/19/17 Tizanidine HCl 4 mg PO Q12H PRN 06/19/17 06/19/17 Previous Rx's Medication Instructions Recorded Lisinopril [Zestril] 10 mg PO DAILY #30 tablet 05/15/17 Albuterol Sulfate [Albuterol 2 - 4 puff IH Q4HR PRN #1 06/07/17 Inhaler] hfa.aer.ad Omeprazole [PriLOSEC] 40 mg PO DAILY #30 cap 06/08/17 Sucralfate [Carafate] 1 gm PO QIDAC #30 tablet 06/08/17 Ondansetron [Zofran] 8 mg PO Q8HR #12 tablet 06/16/17 Doxycycline 100 mg PO BID #20 capsule 03/16/18 Allergies Allergy/AdvReac Type Severity Reaction Status Date / Time Bee Pollen Allergy Hives Verified 06/16/17 12:15 All systems ED: reviewed and negative except as stated. Review of Systems: As Per HPI Constitutional: Denies: fever, chills Cardiovascular: Reports: chest pain. Denies: palpitations, dyspnea on exertion, edema, syncope, paroxysmal nocturnal dyspnea Respiratory: Reports: dyspnea. Denies: cough Gastrointestinal: Reports: nausea. Denies: abdominal pain, vomiting Genitourinary: Denies: urgency, dysuria Musculoskeletal: Denies: back pain Past Medical History - Past Medical History Attestation: Yes The following information was validated with the patient. Medical history: Reports: hypertension, other Surgical history: Reports: orthopedic, other Psychiatric history: Reports: bipolar - Social History Smoking Status: Never smoker Smokeless Tobacco Status: No Alcohol use: Reports: none Drug use: Reports: marijuana Physical Exam CONSTITUTIONAL: Well-appearing; well-nourished; A&O X 3, in no apparent distress HEAD: Normocephalic; atraumatic EYES: PERRL, no scleral icterus NOSE: The nose is normal in appearance without rhinorrhea NECK: No JVD or distended neck veins RESP: Normal chest excursion with respiration; breath sounds clear and equal bilaterally; no wheezes, rhonchi, or rales CARD: Regular rhythm, without murmurs, rub or gallop ABD: Non-distended; non-tender, soft, without rigidity, rebound or guarding,no pulsatile mass CHEST: No pain with palpation SKIN: Normal for age and race; warm and dry without diaphoresis ; no apparent lesions EXTREMITIES: Pulses are 2 plus and equal times 4 extremities, no peripheral edema or calf muscle pain - General Limitations: no limitations General appearance: alert Course Course Narrative: Patient underwent evaluation for his chest pain. His lab work was unremarkable. Chest x-ray is negative. EKG was nonischemic. Troponin was negative. Patient's chest plain completely resolved after 3 doses of nitroglycerin. He does have a moderate HEART score. He will need to come in for admission for further workup and evaluation I discussed the patient's case with Dr. Lola Goddard he agrees to accept. Vital Signs Temperature 98.6 F 10/31/18 00:14 Pulse Rate 92 10/31/18 00:14 Respiratory Rate 15 10/31/18 00:14 Blood Pressure 143/94 10/31/18 00:14 O2 Sat by Pulse Oximetry 97 10/31/18 00:14 Temperature 98.6 F 10/31/18 00:14 Pulse Rate 114 10/31/18 00:55 Respiratory Rate 15 10/31/18 00:55 Blood Pressure 118/88 10/31/18 00:55 O2 Sat by Pulse Oximetry 95 10/31/18 00:55 Oxygen Delivery Oxygen Delivery Room Air Medical Decision Making - Medical Records Medical records reviewed: Yes I reviewed the patient's medical records. - Lab Data Lab results reviewed: Yes I reviewed the patient's lab results. Result diagrams: 10/31/18 00:13 10/31/18 00:13 Lab Results 10/31/18 10/31/18 Range/Units 00:13 00:13 WBC 14.1 H (4.3-11.1) K/mcL RBC 4.93 (4.19-5.50) M/mcL Hgb 14.6 (12.9-16.9) g/dL Hct 42.9 (37.5-50.1) % MCV 87.0 (83.0-100.0) fL MCH 29.6 (28.0-33.3) pg MCHC 34.0 (31.6-35.5) g/dL RDW 12.9 (11.5-14.5) % Plt Count 318 (140-400) K/mcL MPV 9.3 L (9.4-12.4) fL Immature Gran % 0.3 (0-4) % Seg Neutrophils % 63.0 % Lymphocytes % 27.4 % Monocytes % 7.5 % Eosinophils % 1.4 % Basophils % 0.4 % Neutrophils # 8.9 (1.6-8.9) K/mcL Lymphocytes # 3.9 (0.6-4.6) K/mcL Monocytes # 1.1 (0.0-1.3) K/mcL Eosinophils # 0.2 (0.0-0.6) K/mcL Basophils # 0.1 (0.0-0.2) K/mcL Sodium 137 (136-145) mEq/L Potassium 3.7 (3.5-5.1) mEq/L Chloride 107 (98-107) mEq/L Carbon Dioxide 21 L (23-29) mEq/L BUN 11 (6-20) mg/dL Creatinine 1.06 (0.70-1.30) mg/dL Est GFR ( Amer) > 60 (> 60) Est GFR (Non-Af Amer) > 60 (> 60) BUN/Creatinine Ratio 10 (6-26) Glucose 121 H (70-105) mg/dL Calculated Osmolality 285 (280-300) Calcium 9.7 (8.6-10.3) mg/dL Troponin I < 0.03 (< 0.04) ng/mL - Radiology Data Radiology results reviewed: Yes I reviewed the patient's radiology results. Chest X-Ray 10/31/18 00:05 IMPRESSION: No acute process. D/ / Maria Burgess MD / Maria Burgess MD Interpreting Provider: Maria Burgess MD - EKG Data EKG #1 EKG attestation: Yes I reviewed and interpreted this EKG. EKG results narrative: EKG done at 23:57 shows sinus rhythm at a rate of 98 bpm. Normal axis. Intervals within normal limits. No signs of ST elevation, ST depression or Q waves present.
--- NOTE | 2018-10-31 01:26 | Emergency Department Note ---
Disposition Clinical Impression: Chest pain Qualifiers: Chest pain type: unspecified Qualified Code(s): R07.9 - Chest pain, unspecified Disposition: Admitted As Inpatient Condition: Fair Referrals: Pee Bates Jr, CUSTOMER SOLUTIONS COORDINATOR [Primary Care Provider] - Forms: ED Satisfaction Letter General Adult HPI - General Chief complaint: ED Chest Pain Stated complaint: CP Time Seen by Provider: 10/31/18 00:01 Source: patient Limitations: no limitations Nursing Notes Reviewed: Yes Vital Signs Reviewed: Yes - History of Present Illness Pain Scale: 0 - Related Data Home Medications Medication Instructions Recorded Confirmed Trazodone HCl 300 - 400 mg PO HS 05/15/17 06/19/17 Ziprasidone HCl [Geodon] 120 mg PO QPM 05/15/17 06/19/17 Tizanidine HCl 4 mg PO Q12H PRN 06/19/17 06/19/17 Previous Rx's Medication Instructions Recorded Lisinopril [Zestril] 10 mg PO DAILY #30 tablet 05/15/17 Albuterol Sulfate [Albuterol 2 - 4 puff IH Q4HR PRN #1 06/07/17 Inhaler] hfa.aer.ad Omeprazole [PriLOSEC] 40 mg PO DAILY #30 cap 06/08/17 Sucralfate [Carafate] 1 gm PO QIDAC #30 tablet 06/08/17 Ondansetron [Zofran] 8 mg PO Q8HR #12 tablet 06/16/17 Doxycycline 100 mg PO BID #20 capsule 03/16/18 Allergies Allergy/AdvReac Type Severity Reaction Status Date / Time Bee Pollen Allergy Hives Verified 06/16/17 12:15 Past Medical History - Past Medical History Medical history: Reports: hypertension, other Surgical history: Reports: orthopedic, other Psychiatric history: Reports: bipolar - Social History Smoking Status: Never smoker Smokeless Tobacco Status: No Alcohol use: Reports: none Drug use: Reports: marijuana Physical Exam - General Limitations: no limitations General appearance: alert Course Vital Signs Temperature 98.6 F 10/31/18 00:14 Pulse Rate 92 10/31/18 00:14 Respiratory Rate 15 10/31/18 00:14 Blood Pressure 143/94 10/31/18 00:14 O2 Sat by Pulse Oximetry 97 10/31/18 00:14 Temperature 98.6 F 10/31/18 00:14 Pulse Rate 114 10/31/18 00:55 Respiratory Rate 15 10/31/18 00:55 Blood Pressure 118/88 10/31/18 00:55 O2 Sat by Pulse Oximetry 95 10/31/18 00:55 Oxygen Delivery Oxygen Delivery Room Air Medical Decision Making - Medical Records Medical records reviewed: Yes I reviewed the patient's medical records. - Lab Data Lab results reviewed: Yes I reviewed the patient's lab results. Result diagrams: 10/31/18 00:13 10/31/18 00:13 Lab Results 10/31/18 10/31/18 Range/Units 00:13 00:13 WBC 14.1 H (4.3-11.1) K/mcL RBC 4.93 (4.19-5.50) M/mcL Hgb 14.6 (12.9-16.9) g/dL Hct 42.9 (37.5-50.1) % MCV 87.0 (83.0-100.0) fL MCH 29.6 (28.0-33.3) pg MCHC 34.0 (31.6-35.5) g/dL RDW 12.9 (11.5-14.5) % Plt Count 318 (140-400) K/mcL MPV 9.3 L (9.4-12.4) fL Immature Gran % 0.3 (0-4) % Seg Neutrophils % 63.0 % Lymphocytes % 27.4 % Monocytes % 7.5 % Eosinophils % 1.4 % Basophils % 0.4 % Neutrophils # 8.9 (1.6-8.9) K/mcL Lymphocytes # 3.9 (0.6-4.6) K/mcL Monocytes # 1.1 (0.0-1.3) K/mcL Eosinophils # 0.2 (0.0-0.6) K/mcL Basophils # 0.1 (0.0-0.2) K/mcL Sodium 137 (136-145) mEq/L Potassium 3.7 (3.5-5.1) mEq/L Chloride 107 (98-107) mEq/L Carbon Dioxide 21 L (23-29) mEq/L BUN 11 (6-20) mg/dL Creatinine 1.06 (0.70-1.30) mg/dL Est GFR ( Amer) > 60 (> 60) Est GFR (Non-Af Amer) > 60 (> 60) BUN/Creatinine Ratio 10 (6-26) Glucose 121 H (70-105) mg/dL Calculated Osmolality 285 (280-300) Calcium 9.7 (8.6-10.3) mg/dL Troponin I < 0.03 (< 0.04) ng/mL - Radiology Data Radiology results reviewed: Yes I reviewed the patient's radiology results. Chest X-Ray 10/31/18 00:05 IMPRESSION: No acute process. D/ / Maria Burgess MD / Maria Burgess MD Interpreting Provider: Maria Burgess MD - EKG Data EKG #1 EKG attestation: Yes I reviewed and interpreted this EKG. EKG results narrative: EKG shows normal sinus rhythm with ventricular rate of 98. No ST segment elevation or depression. No ectopy or arrhythmia. Normal EKG. No significant change from prior EKG dated 06/19/17. Attestation Statement - Attestation Attestation: I, Cornelius Can MD, personally evaluated this patient and discussed their management with the resident physician. I reviewed the resident's note and agree with the documented findings, medical decision making, and plan of care. 58-year-old male presents to the emergency department with a complaint of some left sided chest pain which started about noon today. Onset was at rest. He rated the pain a 10 out of 10 at the worst. No radiation of the pain but he states at one point his right arm felt numb and tingly. He did have some nausea but no vomiting. Some mild diaphoresis. Some intermittent shortness of breath. He denies any prior known cardiac history. He does have a history of hypertension and hyperlipidemia. On examination patient is a well-developed well-nourished well-appearing male in no acute distress. He is alert and oriented 3. There is no cyanosis or diaphoresis. Breath sounds are clear and equal bilaterally. Heart regular rate and rhythm. No murmur or ectopy. Abdomen soft and nontender with normal bowel sounds. No pedal edema. Labs reviewed and unremarkable. Chest x-ray negative. EKG normal. Patient received aspirin and nitroglycerin. He did have complete relief of the chest pain with nitroglycerin. The hospitalist, Dr. Meek, was consulted and accepted admission of the laura barron.
[2018-10-31] MEDS ORDERED: Naloxone 0.4 MG/ML INJ IVP PRN (01:49)
[2018-10-31] MEDS ORDERED: Nitroglycerin 0.4 MG TAB.SUBL SL PRN (01:51)
--- NOTE | 2018-10-31 01:59 | Internal Med History&Physical ---
Date of Encounter: 10/31/18 Time of Encounter: 01:53 Internal Medicine - H&P: HPI Chief complaint: Chest pain History of present illness: Mr. Phillips is a 58 year old male PMH of Asthma, HTN, GERD who presented to the ED with a chief complaint of chest pain. Patient states that he began having intermittent left-sided chest pain around noon today while at rest drinking his coffee. Patient describes the pain as dull, nonradiating, associated with nausea, mild diaphoresis and some shortness of breath which lasted a few minutes. Each episode lasted for several minutes, however, reports the last one was much more prolonged lasting several hours and not relieved until receiving nitroglycerin here in the ED. Reports no other aggravating or alleviating factors On arrival patient was afebrile, hemodynamically stable. Aside from a mild leukocytosis, initial laboratory workup was unremarkable including a negative troponin. EKG showed no acute ischemic changes. Initial chest x-ray was unremarkable. Patient's chest pain subsided after receiving sublingual nitroglycerin here in the ED as well as a loading dose of aspirin. Patient denies any history of coronary artery disease. Review of his previous records show that he had a nuclear stress test performed in 2017 which was negative for any ischemia or infarct. Echo at that time showed a EF of 60% with normal LV/RV size and function and absent of valvular dysfunction. He admits he has been under a lot of stress lately due to difficulty seeing his daughter. Patient admits to currently smoking marijuana 3 times a day. He has a previous smoking history of 3 packs a day for 25 years. Denies any alcohol or other drug use. Does report family history of heart disease. Past Med Surg Social Fam HX - Past Medical History Medical history: hypertension, other Additional medical history: hiatal hernia Psychiatric history: bipolar - Past Surgical History Surgical History: orthopedic, other Additional surgical history: rhinoplasty. ear sugery,. C5-C6 disc fusion - Social History Smoking Status: Never smoker Smokeless Tobacco Status: No Alcohol use: none Drug use: marijuana - Family History Mother Hx Family Cardiac Disorders: No Father Hx Family Cardiac Disorders: Yes Internal Medicine - H&P: Meds Lisinopril [Zestril] 10 mg PO DAILY #30 tablet 05/15/17 [Rx] Trazodone HCl 400 mg PO HS 10/31/18 [History] Ziprasidone HCl [Geodon] 160 mg PO HS 10/31/18 [History] Allergy/AdvReac Type Severity Reaction Status Date / Time Bee Pollen Allergy Hives Verified 06/16/17 12:15 All Systems PM: A 10-system review of systems was performed and is negative for pertinent findings except as documented above in the HPI. - Constitutional Constitutional: no chills, no fever(s), no night sweats - EENT Eyes: no change in vision, no discharge, no pain, no photophobia Ears: no ear discharge, no ear pain, no tinnitus Nose, mouth and throat: no dysphagia, no nasal discharge, no neck pain, no sore throat - Cardiovascular Cardiovascular ROS IM: no chest pain, no diaphoresis, no dyspnea, no lightheadedness, no palpitations, no syncope - Respiratory Respiratory: no cough, no dyspnea, no wheezing, no excessive phlegm production - Gastrointestinal Gastrointestinal: no abdominal pain, no diarrhea, no hematemesis, no hematochezia, no melena, no nausea, no vomiting - Musculoskeletal Musculoskeletal ROS IM: no numbness, no tingling - Integumentary Integumentary IM: no rash, no unusual bruising - Neurological Neurological ROS: no confusion, no convulsions, no focal weakness, no numbness, no tingling, no tremor(s) - Hematologic/Lymphatic Hematologic/Lymphatic: no easy bruising - Constitutional Vitals: Temp Pulse Resp BP Pulse Ox 98.6 F 73 16 122/92 97 10/31/18 00:14 10/31/18 01:53 10/31/18 01:53 10/31/18 01:53 10/31/18 01:53 Exam: General: Alert and oriented x 3 Skin:Normal color, no rash, no lesions. HEENT:EOM, pupils equal, round and reactive. Cardiovascular:Distant heart sounds; Normal S1 & S2, no rubs, murmurs or gallops. No JVD. Pulse regular. Lungs:Normal breath sounds, no wheezes or crackles. Abdomen:Soft, non-tender, no rigidity. Extremities:No deformity, no edema or tenderness, no joint swelling or clubbing. Neurological:Normal cognition and motor skills. Pulses:Carotid and radial pulses normal +2. Rest of the physical exam is non contributory Internal Med - H&P Results - Labs CBC & Chem 7: 10/31/18 05:07 10/31/18 05:07 Labs: Short CBC 10/31/18 Range/Units 00:13 WBC 14.1 H (4.3-11.1) K/mcL Hgb 14.6 (12.9-16.9) g/dL Hct 42.9 (37.5-50.1) % Plt Count 318 (140-400) K/mcL Neutrophils # 8.9 (1.6-8.9) K/mcL BMP 10/31/18 00:13 Sodium 137 Potassium 3.7 Chloride 107 Carbon Dioxide 21 L BUN 11 Creatinine 1.06 Glucose 121 H Calcium 9.7 Cardiac Enzymes 10/31/18 Range/Units 00:13 Troponin I < 0.03 (< 0.04) ng/mL - Impressions ITS Impressions Chest X-Ray 10/31/18 00:05 IMPRESSION: No acute process. D/ / Maria Burgess MD / Maria Burgess MD Interpreting Provider: Maria Burgess MD - Assessment and plan (1) Chest pain Current Visit: Yes Status: Acute Assessment and plan: Patient presents with atypical chest pain that is nonpleuritic, nonreproducible and nontender alleviated with nitroglycerin received here in the ED. Initial troponin was negative. Review of EKG which showed no acute ischemic changes. Patient has a significant previous smoking history as well as family history of heart disease. Patient currently chest pain-free. Received loading dose of aspirin in the ED. -Continue telemetry -Trend troponin -We will obtain a U tox -Echocardiogram -We will obtain a nuclear stress test if troponins remain negative. Qualifiers: Chest pain type: unspecified Qualified Code(s): R07.9 - Chest pain, unspecified (2) Leukocytosis Current Visit: Yes Status: Acute Assessment and plan: Neutrophilic leukocytosis. No evidence of infection. Possibly reactive. We will monitor Qualifiers: Leukocytosis type: unspecified Qualified Code(s): D72.829 - Elevated white blood cell count, unspecified (3) HTN (hypertension) Current Visit: No Status: Acute Assessment and plan: Blood pressure stable. We will continue to monitor. Resume JULIETA inhibitor. Qualifiers: Qualified Code(s): I10 - Essential (primary) hypertension (4) Asthma Current Visit: Yes Status: Acute Assessment and plan: No evidence of an acute exacerbation. Qualifiers: Qualified Code(s): J45.909 - Unspecified asthma, uncomplicated (5) Bipolar disorder Current Visit: Yes Status: Acute Assessment and plan: Continue with home psychiatric medications. Qualifiers: Most recent bipolar episode type: most recent episode unspecified type Qualified Code(s): F31.70 - Bipolar disorder, currently in remission, most recent episode unspecified (6) DVT prophylaxis Current Visit: Yes Status: Acute Assessment and plan: Ambulation ad desire. - Time Spent With Patient Total time spent is greater than 50% in coordination of care (as documented) at patient's floor/unit and/or counseling patient:
[2018-10-31 05:43] LABS: Basophils % 0.3 %; Eosinophils # 0.2 K/mcL (0.0-0.6); Eosinophils % 1.3 %; Hematocrit 42.1 % (37.5-50.1); Hemoglobin 14.2 g/dL (12.9-16.9); Immature Granulocytes % 0.2 % (0-4); Lymphocytes # 3.4 K/mcL (0.6-4.6); Lymphocytes % 27.3 %; Mean Corpuscular HGB Conc 33.7 g/dL (31.6-35.5); Mean Corpuscular Hemoglobin 29.3 pg (28.0-33.3); Mean Platelet Volume 9.6 fL (9.4-12.4); Monocytes # 0.9 K/mcL (0.0-1.3); Monocytes % 7.6 %; Neutrophils # 7.8 K/mcL (1.6-8.9); Platelet Count 306 K/mcL (140-400); Red Blood Count 4.84 M/mcL (4.19-5.50); Red Cell Distribution Width 12.9 % (11.5-14.5); Segmented Neutrophils % 63.3 %
[2018-10-31 05:49] LABS: INR 1.1; Prothrombin Time 12.1 Seconds (9.4-12.1)
[2018-10-31 05:51] LABS: Amphetamine Screen,Urine Negative ng/mL (Cutoff=1000); Barbiturate Screen,Urine Negative ng/mL (Cutoff=200); Benzodiazepines Screen,Urine Negative ng/mL (Cutoff=200); Cannabinoid Screen,Urine Positive ng/mL (Cutoff = 50); Cocaine Screen,Urine Negative ng/mL (Cutoff= 300); Opiate Screen,Urine Negative ng/mL (Cutoff=300); Phencyclidine Screen,Urine Negative ng/mL (Cutoff=25)
[2018-10-31 05:58] LABS: Alanine Aminotransferase 12 Units/L (7-52); Albumin 4.1 g/dL (3.5-5.7); Albumin/Globulin Ratio 1.6 (1.1-2.2); Alkaline Phosphatase 73 Units/L (34-104); Aspartate Amino Transferase 12 Units/L (13-39); BUN/Creatinine Ratio 9 (6-26); Bilirubin,Total 0.6 mg/dL (0.3-1.0); Blood Urea Nitrogen 10 mg/dL (6-20); Calcium 9.5 mg/dL (8.6-10.3); Carbon Dioxide 26 mEq/L (23-29); Chloride 105 mEq/L (98-107); Chol/HDL Ratio 5.7 (0-4.9); Cholesterol 171 mg/dL (< 200); Globulin 2.6 g/dL (2.4-3.5); Glucose 122 mg/dL (70-105); HDL Cholesterol 30 mg/dL (40-59); LDL Cholesterol,Calculated 111 mg/dL (0-99); Magnesium 1.9 mg/dL (1.6-2.6); Osmolality,Calculated 284 (280-300); Sodium 137 mEq/L (136-145); Total Protein 6.7 g/dL (6.4-8.9); Triglycerides 148 mg/dL (< 150); eGFR For Non-African Americans > 60 (> 60)
[2018-10-31] MEDS ORDERED: *HR* Heparin 5,000 UNIT/ML VIAL SQ SCH (06:00)
[2018-10-31 11:32] VITALS: BP 130/80
--- NOTE | 2018-10-31 12:10 | Discharge Summary ---
- NOTES TO OUTPATIENT PROVIDER Notes to Outpatient Provider: Follow up with PCP in one week. Counseled to quit smoking marijuana Orders not resulted at time of discharge: Pending orders 10/31/18 03:07 NM suze perf SPECT multi [NM] Routine 10/31/18 12:00 Troponin I Q6H Date of Encounter: 10/31/18 Time of Encounter: 12:06 - Discharge Diagnosis (1) Chest pain Priority: Primary Status: Acute Qualifiers: Chest pain type: unspecified Qualified Code(s): R07.9 - Chest pain, unspecified (2) HTN (hypertension) Priority: Secondary Status: Acute Qualifiers: Qualified Code(s): I10 - Essential (primary) hypertension (3) Asthma Priority: Secondary Status: Acute Qualifiers: Qualified Code(s): J45.909 - Unspecified asthma, uncomplicated (4) DVT prophylaxis Priority: Secondary Status: Acute (5) Bipolar disorder Priority: Secondary Status: Acute Qualifiers: Most recent bipolar episode type: most recent episode unspecified type Q ualified Code(s): F31.70 - Bipolar disorder, currently in remission, most recent episode unspecified (6) Leukocytosis Priority: Secondary Status: Acute Qualifiers: Leukocytosis type: unspecified Qualified Code(s): D72.829 - Elevated white blood cell count, unspecified (7) Hyperlipidemia Priority: Secondary Status: Acute Qualifiers: Hyperlipidemia type: unspecified Qualified Code(s): E78.5 - Hyperlipidemia, unspecified Hospital course: Mr. Phillips is a 58 year old male PMH of Asthma, HTN, GERD who presented to the ED with a chief complaint of chest pain. Patient states that he began having intermittent left-sided chest pain around noon today while at rest drinking his coffee. Patient describes the pain as dull, non radiating and 6/10 in severity. He denied any CP now. He was admitted in the hospital and placed him on process specialist. His serial troponin was negative. His 2 D Echo showed pr eserved LVEF,no septal / wall motion abnormalities noticed. He did go for nuclear stress test which came back is negative for any ischemia/infarction. His FLP showed slightly elevate LDL @ 111, so started him on Lipitor 10mg HS and counseled about diet / life style modifications. - Time Spent with Patient Total time spent providing and/or coordinating discharge services: - Discharge Medications Prescriptions: Aspirin 81 mg PO DAILY #30 tab.chew Atorvastatin [Lipitor] 10 mg PO HS #30 tablet Home Medications: Lisinopril [Zestril] 10 mg PO DAILY #30 tablet 05/15/17 [Rx] Albuterol Sulfate [Proair Respiclick] 2 puff IH Q6H PRN #1 aer.[email or web address] 10/31/18 [Rx] Aspirin 81 mg PO DAILY #30 tab.chew 10/31/18 [Rx] Atorvastatin [Lipitor] 10 mg PO HS #30 tablet 10/31/18 [Rx] Trazodone HCl 400 mg PO HS 10/31/18 [History] Ziprasidone HCl [Geodon] 160 mg PO HS 10/31/18 [History] Allergies/Adverse Reactions: Allergy/AdvReac Type Severity Reaction Status Date / Time Bee Pollen Allergy Hives Verified 06/16/17 12:15 Date of admission: 10/31/18 01:41 Primary care physician: Pee Bates Jr, TUB[employer]INE FORMER Consults: 10/31/18 03:41 Consult to Color Adviser [CONS] Routine Reason for SW Consult: power of immigration attorney 10/31/18 03:51 Consult to Occupational Therapy [CONS] Routine Comment: Evaluate, develop and implement POC Reason for Consult: fall 2 weeks ago Does patient have active BEDREST order?: No Is patient medically & hemodynamically stable?: Yes Patient assessed for mobility or mobilized this visit?: Yes Consult to Physical Therapy [CONS] Routine Comment: Evaluate, develop and implement POC Reason for Consult: fall 2 weeks ago Does patient have active BEDREST order?: No Is patient medically & hemodynamically stable?: Yes Patient assessed for mobility or mobilized this visit?: Yes - Constitutional Vitals: Temp Pulse Resp BP Pulse Ox 98.2 F 74 15 130/80 97 10/31/18 11:31 10/31/18 11:31 10/31/18 11:31 10/31/18 11:31 10/31/18 11:31 General appearance: Present: A&O X 3, no acute distress, answers questions appropriately Exam: Gen: Alert, awake, Oriented to time,place and person Chest: Diminished breath sounds B/L, No wheezing, No crackles, No rales Heart: S1S2+ RRR No murmurs Abd: Soft, NT, BS +, No organomegaly Ext: No edema, pulses are palpable, No calf tenderness Neuro : Benign findings Skin: No rash. - Patient Status Disposition: Home, Self-Care Condition: Good Overall status at discharge: patient is back to baseline - Discharge Instructions Follow Up With: Ta Berry MD [Non-Partnered Physician] - 11/06/18 9:00 am - Diet and Activity Activity: increase activity as tolerated Diet: low salt diet
[2018-10-31] MEDS ORDERED: Ziprasidone 80 MG CAPSULE PO SCH (21:00)
[2018-10-31] MEDS ORDERED: traZODone 50 MG TABLET PO SCH (21:00)
[2018-11-01] MEDS ORDERED: Aspirin 81 MG TAB.CHEW PO SCH (09:00)
--- NOTE | 2018-11-01 10:00 | Electrocardiograph Report ---
[address] [address] Test Date: 2018-10-30 Pat Name: Rusty Phillips Department: EXAM4 Room: 3B46 Gender: M [employer]: : 1960 Requested By: Aleksey Blas Order Number: [id number] Reading MD: Angela Burns Measurements Intervals [place] Rate: 98 P: 72 CA: 162 QRS: 93 QRSD: 88 T: 64 QT: 347 QTc: 443 Interpretive Statements Sinus rhythm Borderline right axis deviation Electronically Signed On 11-01-2018 9:58:10 EST by Angela Burns
== END 2018-10-31 12:40 | disposition home or self-care (01) ==
LOC: 3BNU 23:51 → EMEROOARM 23:51 → 3BNU 10-31 02:15
PROVIDERS: ADMIT Internal Medicine; ATTEND Internal Medicine

== ENCOUNTER 2020-01-27 15:19 | Observation (INO) ==
[2020-01-27] MEDS ORDERED: Isovue-370 500 ML BOTTLE IVP ONE (16:02)
[2020-01-27 16:25] LABS: Basophils # 0.1 K/mcL (0.0-0.2); Basophils % 0.4 %; Eosinophils # 0.2 K/mcL (0.0-0.6); Eosinophils % 1.3 %; Hematocrit 40.8 % (37.5-50.1); Hemoglobin 13.5 g/dL (12.9-16.9); Immature Granulocytes % 0.4 % (0-4); Lymphocytes % 19.6 %; Mean Corpuscular HGB Conc 33.1 g/dL (31.6-35.5); Mean Corpuscular Hemoglobin 29.3 pg (28.0-33.3); Mean Corpuscular Volume 88.5 fL (83.0-100.0); Mean Platelet Volume 9.3 fL (9.4-12.4); Monocytes % 6.9 %; Neutrophils # 10.8 K/mcL (1.6-8.9); Platelet Count 285 K/mcL (140-400); Red Blood Count 4.61 M/mcL (4.19-5.50); Segmented Neutrophils % 71.4 %; White Blood Count 15.2 K/mcL (4.3-11.1)
[2020-01-27 16:26] LABS: Bilirubin,Urine Negative (Negative); Blood,Urine Negative (Negative); Clarity,Urine Clear (Clear); Color,Urine Yellow (Yellow); Glucose,Urine (UA) Normal (Normal); Ketones,Urine Negative (Negative); Leukocyte Esterase,Urine Negative (Negative); Nitrite,Urine Negative (Negative); PH,Urine 5.5 pH Units (5.0-8.0); Protein,Urine Negative (Neg-Trace); Specific Gravity,Urine 1.026 (1.010-1.025); Urobilinogen,Urine Normal (Normal)
[2020-01-27 16:31] LABS: INR 1.1; Prothrombin Time 12.3 Seconds (9.4-12.1)
[2020-01-27 16:43] LABS: Alanine Aminotransferase 13 Units/L (7-52); Albumin 3.9 g/dL (3.5-5.7); Albumin/Globulin Ratio 1.6 (1.1-2.2); Alkaline Phosphatase 89 Units/L (34-104); Aspartate Amino Transferase 11 Units/L (13-39); Bilirubin,Direct 0.1 mg/dL (0.0-0.2); Bilirubin,Indirect 0.3 mg/dL (0.0-1.0); Bilirubin,Total 0.4 mg/dL (0.3-1.0); Blood Urea Nitrogen 10 mg/dL (6-20); Calcium 9.4 mg/dL (8.6-10.3); Carbon Dioxide 28 mEq/L (23-29); Chloride 102 mEq/L (98-107); Globulin 2.4 g/dL (2.4-3.5); Glucose 121 mg/dL (70-105); Lipase 66 Units/L (11-82); Osmolality,Calculated 284 (280-300); Potassium 3.9 mEq/L (3.5-5.1); Sodium 137 mEq/L (136-145); Total Protein 6.3 g/dL (6.4-8.9)
[2020-01-27 16:46] LABS: BUN/Creatinine Ratio 9 (6-26); eGFR For African Americans > 60 (> 60); eGFR For Non-African Americans > 60 (> 60)
[2020-01-27] MEDS ORDERED: Piperacillin/Tazobactam 3.375 GM in Water for inj. (sterile) 20 ML IVP ONE (18:23)
[2020-01-27] MEDS ORDERED: 0.9 % Sodium Chloride 1,000 ML IV ONE (18:23)
[2020-01-27] MEDS ORDERED: Morphine Sulfate 2 MG/ML SYRINGE IVP ONE (19:26)
[2020-01-27] MEDS ORDERED: Benzonatate 100 MG CAPSULE PO PRN (20:37)
[2020-01-27] MEDS ORDERED: Ondansetron 4 MG/2 ML VIAL IVP PRN (20:38)
[2020-01-27] MEDS ORDERED: Ketorolac 30 MG/ML VIAL IVP PRN (20:38)
[2020-01-27] MEDS ORDERED: Naloxone 0.4 MG/ML INJ IVP PRN (20:38)
[2020-01-27] MEDS ORDERED: TRAZODONE HCL PO SCH (21:00)
[2020-01-27] MEDS: Aspirin 81 MG TAB.CHEW PO SCH (21:44)
[2020-01-27] MEDS: lisinopriL 10 MG TABLET PO SCH (21:44)
[2020-01-27] MEDS: Ziprasidone 80 MG CAPSULE PO SCH (21:44)
[2020-01-27] MEDS: traZODone 50 MG TABLET PO SCH (21:46)
[2020-01-27] MEDS: 0.9 % Sodium Chloride 1,000 ML IVC SCH (21:57)
[2020-01-27] MEDS: Piperacillin/Tazobactam 3.375 GM in 0.9 % Sodium Chloride Mini Bag 100 ML IVPB SCH (23:38)
[2020-01-28 05:46] LABS: Basophils % 0.1 %; Eosinophils # 0.3 K/mcL (0.0-0.6); Eosinophils % 2.2 %; Hematocrit 38.3 % (37.5-50.1); Hemoglobin 12.3 g/dL (12.9-16.9); Immature Granulocytes % 0.4 % (0-4); Lymphocytes # 3.3 K/mcL (0.6-4.6); Lymphocytes % 25.4 %; Mean Corpuscular HGB Conc 32.1 g/dL (31.6-35.5); Mean Corpuscular Hemoglobin 29.1 pg (28.0-33.3); Mean Corpuscular Volume 90.5 fL (83.0-100.0); Mean Platelet Volume 9.5 fL (9.4-12.4); Monocytes % 7.4 %; Neutrophils # 8.2 K/mcL (1.6-8.9); Platelet Count 266 K/mcL (140-400); Red Blood Count 4.23 M/mcL (4.19-5.50); Red Cell Distribution Width 13.1 % (11.5-14.5); Segmented Neutrophils % 64.5 %; White Blood Count 12.8 K/mcL (4.3-11.1)
[2020-01-28 06:05] LABS: BUN/Creatinine Ratio 9 (6-26); Blood Urea Nitrogen 11 mg/dL (6-20); Calcium 8.4 mg/dL (8.6-10.3); Carbon Dioxide 24 mEq/L (23-29); Chloride 111 mEq/L (98-107); Glucose 107 mg/dL (70-105); Osmolality,Calculated 288 (280-300); Potassium 4.4 mEq/L (3.5-5.1); Sodium 139 mEq/L (136-145); eGFR For African Americans > 60 (> 60); eGFR For Non-African Americans > 60 (> 60)
[2020-01-28] MEDS ORDERED: *HR* OxyCODONE/APAP 5/325 TABLET PO PRN (09:15)
[2020-01-28] MEDS ORDERED: Acetaminophen 325 MG TABLET PO PRN (09:15)
[2020-01-28] MEDS: lisinopriL 10 MG TABLET PO SCH (10:02)
[2020-01-28] MEDS: Aspirin 81 MG TAB.CHEW PO SCH (10:03)
[2020-01-28] MEDS: Piperacillin/Tazobactam 3.375 GM in 0.9 % Sodium Chloride Mini Bag 100 ML IVPB SCH ×3 (10:03→23:38)
[2020-01-28] MEDS: 0.9 % Sodium Chloride 1,000 ML IVC SCH ×2 (15:07→16:17)
[2020-01-28] MEDS: Ziprasidone 80 MG CAPSULE PO SCH (21:09)
[2020-01-28] MEDS: traZODone 50 MG TABLET PO SCH (21:09)
[2020-01-29 06:21] LABS: Basophils % 0.2 %; Eosinophils # 0.3 K/mcL (0.0-0.6); Eosinophils % 2.5 %; Hematocrit 38.2 % (37.5-50.1); Hemoglobin 12.6 g/dL (12.9-16.9); Immature Granulocytes % 0.3 % (0-4); Lymphocytes # 2.9 K/mcL (0.6-4.6); Lymphocytes % 24.4 %; Mean Corpuscular Hemoglobin 29.9 pg (28.0-33.3); Mean Corpuscular Volume 90.5 fL (83.0-100.0); Mean Platelet Volume 9.5 fL (9.4-12.4); Neutrophils # 7.8 K/mcL (1.6-8.9); Platelet Count 281 K/mcL (140-400); Red Blood Count 4.22 M/mcL (4.19-5.50); Red Cell Distribution Width 12.9 % (11.5-14.5); Segmented Neutrophils % 64.6 %
[2020-01-29] MEDS: lisinopriL 10 MG TABLET PO SCH (09:38)
[2020-01-29] MEDS: Aspirin 81 MG TAB.CHEW PO SCH (09:39)
[2020-01-29] MEDS: Piperacillin/Tazobactam 3.375 GM in 0.9 % Sodium Chloride Mini Bag 100 ML IVPB SCH (09:39)
[2020-01-29 10:50] VITALS: BP 139/87
== END 2020-01-29 13:11 | disposition home or self-care (01) ==
LOC: 3ANU 15:19 → EMEROOARM 15:19 → SUATTDRO 18:39 → 3ANU 19:46
PROVIDERS: ADMIT Internal Medicine; ATTEND Internal Medicine